=== PATIENT | male | born 1970 | race Caucasian/White ===

== ENCOUNTER 2016-07-10 07:56 | Emergency (ER) | payer BC ==
--- NOTE | 2016-07-10 08:24 | UC ---
Lower Extremity/Ankle HPI - HPI Summary HPI Summary: 45 yo male with inversion injury of left ankle slipping on ice 5 days ago hx left mid foot fx /dislocation - History of Current Complaint Chief Complaint: UCLowerExtremity Stated Complaint: ANKLE INJURY Time Seen by Provider: 07/10/16 08:06 Hx Obtained From: Patient Onset/Duration: Gradual Onset Severity Initially: Moderate Severity Currently: Moderate Pain Intensity: 6 Pain Scale Used: 0-10 Numeric Aggravating Factor(s): Standing, Ambulation Alleviating Factor(s): Rest Able to Bear Weight: Yes - Allergies/Home Medications Allergies/Adverse Reactions: Allergies Allergy/AdvReac Type Severity Reaction Status Date / Time No Known Allergies Allergy Verified 07/10/16 08:03 Home Medications: Home Medications Ibuprofen [Advil] 600 mg 07/10/16 [History] PMH/Surg Hx/FS Hx/Imm Hx Previously Healthy: Yes Cardiovascular History Of: Reports: Hypertension - not diagnosed but usually high - Surgical History Surgical History: None - Family History Known Family History: Positive: Hypertension - Social History Alcohol Use: Rare Substance Use Type: None Smoking Status (MU): Never Smoked Tobacco Review of Systems Constitutional: Negative Skin: Negative Eyes: Negative ENT: Negative Respiratory: Negative Cardiovascular: Negative Gastrointestinal: Negative Genitourinary: Negative Motor: Negative Neurovascular: Negative Musculoskeletal: Arthralgia Neurological: Negative Psychological: Negative All Other Systems Reviewed And Are Negative: Yes Physical Exam Triage Information Reviewed: Yes Appearance: Well-Appearing, No Pain Distress, Well-Nourished Vital Signs: Initial Vital Signs Temp 97.1 F 07/10/16 08:04 Pulse 120 07/10/16 08:04 Resp 18 07/10/16 08:04 BP 190/125 07/10/16 08:04 Pulse Ox 97 07/10/16 08:04 Eyes: Positive: Conjunctiva Clear ENT: Positive: Hearing grossly normal. Negative: Nasal congestion, Nasal drainage, Trismus, Muffled/hoarse voice Neck: Positive: Supple Respiratory: Positive: Lungs clear, Normal breath sounds, No respiratory distress Cardiovascular: Positive: RRR, No Murmur Musculoskeletal: Positive: Edema @ Neurological: Positive: Alert Psychological Exam: Normal Skin Exam: Normal Lower Extremity Course/Dx - Differential Dx/Diagnosis Provider Diagnoses: spiral fracture distal left fibula Discharge - Discharge Plan Condition: Stable Disposition: HOME Prescriptions: Ibuprofen TAB* [Motrin TAB*] 600 mg PO QID PRN #40 tab PRN Reason: Pain Patient Education Materials: Ankle Fracture (ED), Hypertension (ED) Forms: *Work Release Referrals: [facility] [Outside] (you blood pressure is high you need to find a primary care doctor to manage your BP) Mere Colón MD [Medical Doctor] - Additional Instructions: You have a spiral fracture of the distal left fibula CAM boot crutches with non wt bearing elevate elevate elevate Images Feet (Multiple View): 1 - tender /swollen
[2016-07-10] MEDS ORDERED: Ibuprofen TAB* 600 MG PO ONE (08:39)
--- NOTE | 2016-07-10 08:47 | RAD ---
HISTORY: Left ankle inversion injury COMPARISONS: None VIEWS: 3, Frontal, lateral, and oblique views of the left ankle FINDINGS: BONE DENSITY: Normal. BONES: There is an oblique, minimally displaced fracture of the distal fibula. JOINTS: There is no arthropathy. The tibiofibular interval is normal. ALIGNMENT: There is no dislocation. SOFT TISSUES: Unremarkable. OTHER FINDINGS: None. IMPRESSION: OBLIQUE, MINIMALLY DISPLACED FRACTURE OF THE DISTAL FIBULA
[2016-07-10 09:02] VITALS: BP 199/122
== END 2016-07-10 08:57 | disposition home or self-care (01) ==
LOC: UCEAST 07:56
DX: S82.832A Other fracture of upper and lower end of left fibula, initial encounter for closed fracture (principal); X50.1XXA Overexertion from prolonged static or awkward postures, initial encounter; Y93.9 Activity, unspecified; Y92.9 Unspecified place or not applicable; Z87.81 Personal history of (healed) traumatic fracture
CPT/HCPCS: 99203; A9270-GY; G0463

== ENCOUNTER 2017-08-15 08:03 | Emergency (ER) | payer BC ==
[2017-08-15 08:19] VITALS: BP 225/140
--- NOTE | 2017-08-15 09:02 | UC ---
Back Pain HPI - HPI Summary HPI Summary: 46 yo male with chronic low back pain takes 9 motrin a day x months also worried he has hepatitis "I've been looking on line" intermittent abd pain mod headache x 2 weeks long hx of HTN for which he has never addressed has had a left inquinal hernia x 1 year no CP or SOB - History of Current Complaint Chief Complaint: UCAbdominalPain Stated Complaint: ABD/BACK PAIN Time Seen by Provider: 08/15/17 08:18 Hx Obtained From: Patient Onset/Duration: Gradual Onset Timing: Constant Severity Initially: Mild Severity Currently: Mild Pain Intensity: 4 Pain Scale Used: 0-10 Numeric Character: Aching Aggravating Factor(s): Movement Alleviating Factor(s): OTC Meds Associated Signs And Symptoms: Positive: Negative - Allergies/Home Medications Allergies/Adverse Reactions: Allergies Allergy/AdvReac Type Severity Reaction Status Date / Time No Known Allergies Allergy Verified 08/15/17 08:19 PMH/Surg Hx/FS Hx/Imm Hx Previously Healthy: Yes Cardiovascular History: Hypertension - never addressed state "he hates doctors" - Surgical History Surgical History: None - Family History Known Family History: Positive: Hypertension - Social History Alcohol Use: Rare Substance Use Type: Marijuana Substance Use Comment - Amount & Last Used: weekly Smoking Status (MU): Never Smoked Tobacco Review of Systems Constitutional: Negative Skin: Negative Eyes: Negative ENT: Negative Respiratory: Negative Cardiovascular: Negative Gastrointestinal: Negative Genitourinary: Negative Motor: Negative Neurovascular: Negative Musculoskeletal: Myalgia Neurological: Headache Psychological: Negative Is Patient Immunocompromised?: No All Other Systems Reviewed And Are Negative: Yes Physical Exam Triage Information Reviewed: Yes Appearance: Well-Appearing, No Pain Distress, Well-Nourished Vital Signs: Initial Vital Signs Temp 98.7 F 08/15/17 08:13 Pulse 136 08/15/17 08:13 Resp 18 08/15/17 08:13 BP 225/140 08/15/17 08:13 Pulse Ox 96 08/15/17 08:13 Vital Signs Reviewed: Yes Eyes: Positive: Conjunctiva Clear, Other: - a/v nicking, no hemorrhages ENT: Positive: Hearing grossly normal. Negative: Nasal congestion, Nasal drainage, Trismus, Muffled voice, Hoarse voice Neck: Positive: Supple, Nontender Respiratory: Positive: Lungs clear, Normal breath sounds, No respiratory distress, No accessory muscle use Cardiovascular: Positive: RRR, Tachycardia Abdomen Description: Positive: Nontender, Soft, Hernia @ - huge left inguinal Musculoskeletal: Positive: Edema @ - pretibial Neurological: Positive: Alert Psychological Exam: Normal Skin Exam: Normal Back Pain Course/Dx - Course Course Of Treatment: decline EMS transfer to [facility] [place] Cristobal aware he is coming POV - Differential Dx/Diagnosis Provider Diagnoses: hypertensive urgency. back pain. proteinuria. left inginal hernia Discharge - Sign-Out/Discharge Documenting (check all that apply): Discharge - Discharge Plan Condition: Guarded Disposition: TRANS HIGHER LVL OF CARE FAC Referrals: No Primary Care Phys,NOPCP [Primary Care Provider] - Additional Instructions: to ER for evaluation of your symptoms You need a higher level of care than we can provide you here - Billing Disposition and Condition Condition: GUARDED Disposition: EMTALA
== END 2017-08-15 09:00 | disposition short-term general hospital (02) ==
LOC: UCEAST 08:03
DX: M54.5 Low back pain (principal); K40.90 Unilateral inguinal hernia, without obstruction or gangrene, not specified as recurrent; R80.9 Proteinuria, unspecified; I16.0 Hypertensive urgency; R00.0 Tachycardia, unspecified
CPT/HCPCS: 81003; 93005; 99212; G0463

== ENCOUNTER 2017-08-15 09:23 | Emergency (ER) | payer BC ==
[2017-08-15] MEDS ORDERED: NS 0.9% 1000 ML* 1,000 ML IV SCH (10:15)
[2017-08-15] MEDS ORDERED: Labetalol IV* 5 MG/ML 20 ML VIAL IV PUSH ONE ×2 (10:17→11:01)
[2017-08-15 10:34] LABS: ABS Basophils 0.1 10^3/ul (0-0.2); ABS Eosinophils 0.1 10^3/ul (0-0.6); ABS Lymphocytes 1.8 10^3/ul (1.0-4.8); ABS Monocytes 0.8 10^3/ul (0-0.8); ABS Nucleated RBC 0 10^3/ul; Eosinophil % 0.7 % (0-6); Hematocrit 45 % (42-52); Hemoglobin 15.3 g/dl (14.0-18.0); Lymphocyte % 10.1 % (25-47); Mean Corpuscular HGB Conc 34 g/dl (31-36); Mean Corpuscular Hemoglobin 29 pg (27-31); Mean Corpuscular Volume 84 fL (80-94); Mean Platelet Volume 10.3 um3 (7.4-10.4); Nucleated Red Blood Cells % 0; Platelet Count 218 10^3/ul (150-450); Red Blood Count 5.37 10^6/ul (4.0-5.4); Red Cell Distribution Width 14 % (10.5-15); White Blood Count 17.8 10^3/ul (3.5-10.8)
--- NOTE | 2017-08-15 10:41 | RAD ---
HISTORY: Tachycardia COMPARISONS: None VIEWS: 1: frontal portable view of the chest at 10:25 AM FINDINGS: LINES AND TUBES: None. CARDIOMEDIASTINAL SILHOUETTE: The cardiomediastinal silhouette is normal for portable technique. PLEURA: The costophrenic angles are sharp. No pleural abnormalities are noted. LUNG PARENCHYMA: The lungs are clear. ABDOMEN: The upper abdomen is clear. There is no subphrenic gas. BONES AND SOFT TISSUES: No bone or soft tissue abnormalities are noted. IMPRESSION: NO ACTIVE CARDIOPULMONARY DISEASE.
[2017-08-15 10:47] LABS: INR 0.96 (0.77-1.02)
[2017-08-15 10:52] LABS: EGFR Non-African American 77.1 (>60)
[2017-08-15] MEDS ORDERED: amLODIPine TAB* 5 MG PO ONE (11:35)
[2017-08-15] MEDS ORDERED: Iohexol 300* (CONTRAST) 10 ML SDV IV ONE (12:02)
--- NOTE | 2017-08-15 13:30 | RAD ---
CLINICAL HISTORY: Low back pain and "left inguinal mass". COMPARISON: None TECHNIQUE: Contrast enhanced CT examination of the abdomen and pelvis from the lung bases through the initial tuberosities. The patient received 133 mL Omnipaque 300 intravenously prior to imaging.The patient received oral contrast as well prior to imaging. Reformats of the lumbar spine were specifically created and independently reviewed. FINDINGS: VISUALIZED LUNG BASES: At the dependent lung bases there are several round pleural based densities as well as a more linear density along the medial margin of the right lung base. The appearance is most consistent with atelectasis. There is no pleural effusion. ABDOMEN AND PELVIS: The liver, spleen, pancreas and adrenal glands are grossly normal in appearance. The gallbladder is normal. The kidneys are normal in appearance without focal mass, calcification or signs of hydronephrosis. The oral contrast has progressed as far as the descending colon. The small and large bowel are not distended. The patient's normal appendix is identified in the right lower quadrant measuring 6 mm in diameter with a small amount of contrast in the lumen. The descending colon descends into the patient's very large left inguinal hernia, loops through the hernia before exiting as the sigmoid colon. There are no signs of pathologic obstruction or acute inflammatory change in this hernia. There is no gross retroperitoneal or mesenteric lymphadenopathy. The pelvic viscera is normal in appearance. The mildly calcified abdominal aorta and iliac arteries are normal in course and diameter. Mild degenerative changes of the lower thoracic and lumbar spine includes loss of intervertebral disc height. There is anterior marginal osteophyte formation along the lower thoracic spine. There is broad-based disc protrusion that combines with facet arthropathy and thickening of the ligamentum flavum at L2/L3, L3/L4 and L4/L5 causing varying degrees of central canal or neural foraminal stenoses. IMPRESSION: 1. There is a large left-sided inguinal hernia containing a loop of distal descending and sigmoid colon. There are no signs of pathologic obstruction or acute inflammatory change. 2. Degenerative changes of the lower lumbar spine including degenerative disc disease as described above. If clinically warranted superior characterization of the lumbar spine can be made with MRI on a nonemergent basis. 3. Chronic and degenerative changes described in the body the report unlikely to be directly related to the patient's current presentation.
[2017-08-15 13:46] LABS: Urine Appearance Clear; Urine Blood Negative (Negative); Urine Color Yellow; Urine Ketones Negative (Negative); Urine Protein 2+(100 mg/dL) (Negative); Urine Specific Gravity 1.029 (1.010-1.030); Urine Urobilinogen Negative (Negative)
[2017-08-15 14:58] VITALS: BP 197/126
--- NOTE | 2017-08-15 15:52 | ED ---
Cuauhtemoc Zuniga Gabriel scribed for Sergio Beard MD on 08/15/17 at 0952 . Back Pain - HPI Summary HPI Summary: This patient is a 46 year old M presenting to [facility] with a chief complaint of back pain that began 6 months ago. The patient rates the pain 4/10 in severity. Symptoms aggravated by long periods of standing and walking. Symptoms alleviated by rest and sitting. Patient reports intermittent SANDERS. Patient denies CP, SOB, nausea, trouble with BM, blood in stool, and urinary symptoms. He takes 9-200mg tablets of ibuprofen a day. Pt also complains of a hernia that began a year ago that is getting worse. Pt was seen at and referred here. - History of Current Complaint Chief Complaint: EDBackInjuryPain Stated Complaint: ABD PAIN-CC TRANSFER Time Seen by Provider: 08/15/17 09:43 Hx Obtained From: Patient Onset/Duration: Lasting Weeks, Still Present Timing: Constant Severity Initially: Moderate Severity Currently: Moderate Pain Intensity: 4 Pain Scale Used: 0-10 Numeric Associated Signs And Symptoms: Positive: Negative - CP, SOB, nausea, trouble with BM, blood in stool, and urinary symptoms, Other - SANDERS - Allergies/Home Medications Allergies/Adverse Reactions: Allergies Allergy/AdvReac Type Severity Reaction Status Date / Time No Known Allergies Allergy Verified 08/15/17 08:19 PMH/Surg Hx/FS Hx/Imm Hx Endocrine/Hematology History: Denies: Hx Diabetes Cardiovascular History: Reports: Hx Hypertension - not diagnosed but usually high Respiratory History: Denies: Hx Chronic Bronchitis, Hx Chronic Obstructive Pulmonary Disease (COPD ) Infectious Disease History: No Infectious Disease History: Denies: Traveled Outside the [place] in Last 30 Days - Family History Known Family History: Positive: Hypertension - Social History Occupation: Employed Full-time Lives: With Family Alcohol Use: Rare Substance Use Type: Reports: Marijuana Substance Use Comment - Amount & Last Used: weekly Smoking Status (MU): Never Smoked Tobacco Review of Systems Negative: Chest Pain Negative: Shortness Of Breath Gastrointestinal: Negative - blood in stool Positive: Other - inguinal hernia . Negative: Nausea Positive: no symptoms reported Positive: Other - low back pain Positive: Headache All Other Systems Reviewed And Are Negative: Yes Physical Exam - Summary Physical Exam Summary: General: well-appearing, no pain distress Skin: warm, color reflects adequate perfusion, dry Head: normal Eyes: EOMI, CHET ENT: normal Neck: supple, nontender Respiratory: CTA, breath sounds present Cardiovascular: tachycardia Abdomen: soft, nontender, left inguinal and scrotal swelling that is mildly TTP Bowel: present Musculoskeletal: normal, strength/ROM intact Neurological: normal, sensory/motor intact, A&O x3 Psychological: affect/mood appropriate Triage Information Reviewed: Yes Vital Signs On Initial Exam: Initial Vitals Temp Pulse Resp BP Pulse Ox 99.3 F 122 20 235/142 95 08/15/17 09:34 08/15/17 09:34 08/15/17 09:34 08/15/17 09:34 08/15/17 09:34 Vital Signs Reviewed: Yes Diagnostics - Vital Signs Vital Signs Temp Pulse Resp BP Pulse Ox 08/15/17 09:34 99.3 F 122 20 235/142 95 - Laboratory Lab Results: Lab Results 08/15/17 08/15/17 08/15/17 Range/Units 10:02 10:02 10:02 WBC (3.5-10.8) 10^3/ul RBC (4.0-5.4) 10^6/ul Hgb (14.0-18.0) g/dl Hct (42-52) % MCV (80-94) fL MCH (27-31) pg MCHC (31-36) g/dl RDW (10.5-15) % Plt Count (150-450) 10^3/ul MPV (7.4-10.4) um3 Neut % (Auto) (38-83) % Lymph % (Auto) (25-47) % Lenoir % (Auto) (0-7) % Eos % (Auto) (0-6) % Baso % (Auto) (0-2) % Absolute Neuts (auto) (1.5-7.7) 10^3/ul Absolute Lymphs (auto) (1.0-4.8) 10^3/ul Absolute Monos (auto) (0-0.8) 10^3/ul Absolute Eos (auto) (0-0.6) 10^3/ul Absolute Basos (auto) (0-0.2) 10^3/ul Absolute Nucleated RBC 10^3/ul Nucleated RBC % INR (Anticoag Therapy) 0.96 (0.77-1.02) APTT 29.1 (26.0-36.3) seconds Sodium 139 (139-145) mmol/L Potassium 3.4 L (3.5-5.0) mmol/L Chloride 103 (101-111) mmol/L Carbon Dioxide 26 (22-32) mmol/L Anion Gap 10 (2-11) mmol/L BUN 18 (6-24) mg/dL Creatinine 1.03 (0.67-1.17) mg/dL Est GFR ( Amer) 99.1 (>60) Est GFR (Non-Af Amer) 77.1 (>60) BUN/Creatinine Ratio 17.5 (8-20) Glucose 134 H (70-100) mg/dL Calcium 9.2 (8.6-10.3) mg/dL Magnesium 2.0 (1.9-2.7) mg/dL Total Bilirubin 0.40 (0.2-1.0) mg/dL AST 21 (13-39) U/L ALT 28 (7-52) U/L Alkaline Phosphatase 91 (34-104) U/L Total Creatine Kinase 108 (10-223) U/L CK-MB (CK-2) 3.3 (0.6-6.3) ng/mL Troponin I 0.03 (<0.04) ng/mL C-Reactive Protein 3.65 (< 5.00) mg/L B-Natriuretic Peptide 114 H ( - 100) pg/mL Total Protein 6.9 (6.4-8.9) g/dL Albumin 3.5 (3.2-5.2) g/dL Globulin 3.4 (2-4) g/dL Albumin/Globulin Ratio 1.0 (1-3) Lipase 13 (11.0-82.0) U/L TSH 1.68 (0.34-5.60) mcIU/mL Urine Color Urine Appearance Urine pH (5-9) Ur Specific Welsh (1.010-1.030) Urine Protein (Negative) Urine Ketones (Negative) Urine Blood (Negative) Urine Nitrate (Negative) Urine Bilirubin (Negative) Urine Urobilinogen (Negative) Ur Leukocyte Esterase (Negative) Urine WBC (Auto) (Absent) Urine RBC (Auto) (Absent) Urine Bacteria (Absent) Urine Glucose (Negative) Serum Alcohol < 10 (<10) mg/dL 08/15/17 08/15/17 Range/Units 10:02 13:15 WBC 17.8 H (3.5-10.8) 10^3/ul RBC 5.37 (4.0-5.4) 10^6/ul Hgb 15.3 (14.0-18.0) g/dl Hct 45 (42-52) % MCV 84 (80-94) fL MCH 29 (27-31) pg MCHC 34 (31-36) g/dl RDW 14 (10.5-15) % Plt Count 218 (150-450) 10^3/ul MPV 10.3 (7.4-10.4) um3 Neut % (Auto) 84.2 H (38-83) % Lymph % (Auto) 10.1 L (25-47) % Lenoir % (Auto) 4.6 (0-7) % Eos % (Auto) 0.7 (0-6) % Baso % (Auto) 0.4 (0-2) % Absolute Neuts (auto) 15.0 H (1.5-7.7) 10^3/ul Absolute Lymphs (auto) 1.8 (1.0-4.8) 10^3/ul Absolute Monos (auto) 0.8 (0-0.8) 10^3/ul Absolute Eos (auto) 0.1 (0-0.6) 10^3/ul Absolute Basos (auto) 0.1 (0-0.2) 10^3/ul Absolute Nucleated RBC 0 10^3/ul Nucleated RBC % 0 INR (Anticoag Therapy) (0.77-1.02) APTT (26.0-36.3) seconds Sodium (139-145) mmol/L Potassium (3.5-5.0) mmol/L Chloride (101-111) mmol/L Carbon Dioxide (22-32) mmol/L Anion Gap (2-11) mmol/L BUN (6-24) mg/dL Creatinine (0.67-1.17) mg/dL Est GFR ( Amer) (>60) Est GFR (Non-Af Amer) (>60) BUN/Creatinine Ratio (8-20) Glucose (70-100) mg/dL Calcium (8.6-10.3) mg/dL Magnesium (1.9-2.7) mg/dL Total Bilirubin (0.2-1.0) mg/dL AST (13-39) U/L ALT (7-52) U/L Alkaline Phosphatase (34-104) U/L Total Creatine Kinase (10-223) U/L CK-MB (CK-2) (0.6-6.3) ng/mL Troponin I (<0.04) ng/mL C-Reactive Protein (< 5.00) mg/L B-Natriuretic Peptide ( - 100) pg/mL Total Protein (6.4-8.9) g/dL Albumin (3.2-5.2) g/dL Globulin (2-4) g/dL Albumin/Globulin Ratio (1-3) Lipase (11.0-82.0) U/L TSH (0.34-5.60) mcIU/mL Urine Color Yellow Urine Appearance Clear Urine pH 7.0 (5-9) Ur Specific Welsh 1.029 (1.010-1.030) Urine Protein 2+(100 mg/dl) A (Negative) Urine Ketones Negative (Negative) Urine Blood Negative (Negative) Urine Nitrate Negative (Negative) Urine Bilirubin Negative (Negative) Urine Urobilinogen Negative (Negative) Ur Leukocyte Esterase Negative (Negative) Urine WBC (Auto) Trace(0-5/hpf) (Absent) Urine RBC (Auto) Trace(0-2/hpf) (Absent) Urine Bacteria Absent (Absent) Urine Glucose Negative (Negative) Serum Alcohol (<10) mg/dL Result Diagrams: 08/15/17 10:02 08/15/17 10:02 Lab Statement: Any lab studies that have been ordered have been reviewed, and results considered in the medical decision making process. - Radiology CXR Radiology Interpretation Completed By: Radiologist - no active cardiopulmonary disease ED physician has reviewed this radiology report. - CT CT ABD/Pelvis CT Interpretation Completed By: Radiologist - 1 There is a large left-sided inguinal hernia containing a loop of distal descending and sigmoid colon. There are no signs of pathologic obstruction or acute inflammatory change. 2. Degenerative changes of the lower lumbar spine including degenerative disc disease as described above. If clinically warranted superior characterization of the lumbar spine can be made with MRI on a nonemergent basis. 3. Chronic and degenerative changes described in the body the report unlikely to be directly related to the patient's current presentation. ED physician has reviewed this report. L spine CT CT Interpretation Completed By: Radiologist - 1 There is a large left-sided inguinal hernia containing a loop of distal descending and sigmoid colon. There are no signs of pathologic obstruction or acute inflammatory change. 2. Degenerative changes of the lower lumbar spine including degenerative disc disease as described above. If clinically warranted superior characterization of the lumbar spine can be made with MRI on a nonemergent basis. 3. Chronic and degenerative changes described in the body the report unlikely to be directly related to the patient's current presentation. ED physician has reviewed this report. - EKG 11:21 Cardiac Rate: NL EKG Rhythm: Sinus Rhythm - at 96 BPM EKG Interpretation: nonspecific abnormalities in the lateral and anterior leads Re-Evaluation - Re-Evaluation First Eval Re-Evaluation Time: 14:20 Change: Improved Comment: The pt's pain has improved and I discussed discharge and test results. Back Pain Course/Dx - Course Course Of Treatment: DISCUSSED RESULTS WITH THE PATIENT. DISCUSSED WITH DR MARTINEZ, SURGERY. THE HERNIA IS NOT INCARCERATED AND PAIN FREE AT THIS TIME; F /U OUT PATIENT WITH SURGERY. STARTED AMLODIPINE 10MG PO QD FOR THE HTN; F/U PMD. RX FLEXERIL AND TRAMADOL FOR THE LBP; F/U PMD. RETURN TO ED IF WORSE OR ANY QUESTIONS/CONCERNS. Assessment/Plan: BP noted and advised to follow up with PCP. Medications reviewed. - Diagnoses Provider Diagnoses: Low back pain, Hypertension, Left inguinal hernia - Provider Notifications Discussed Care Of Patient With: Leoncio Martinez Time Discussed With Above Provider: 14:10 Instructed by Provider To: Other - We discussed patient care with Dr. Martinez , surgeon and they recommended that the patient should be discharged and follow up in his office. Discharge - Sign-Out/Discharge Documenting (check all that apply): Discharge - Discharge Plan Condition: Stable Disposition: HOME Prescriptions: amLODIPine TAB* [Norvasc 5 mg TAB*] 10 mg PO DAILY #30 tab Amoxicillin/Clavulanate TAB* [Augmentin TAB 875*] 875 mg PO BID #20 tab Cyclobenzaprine TAB* [Flexeril 10 MG TAB*] 10 mg PO TID PRN #15 tab MDD 3 PRN Reason: Pain traMADol TAB* [Ultram*] 50 mg PO Q6HR PRN #20 tab MDD 4 PRN Reason: Pain Patient Education Materials: Inguinal Hernia (ED), Hypertension (ED), Chronic Back Pain (ED), Core Strengthening Exercises (GEN) Forms: *Work Release Referrals: [facility] [Provider Group] [facility] [Outside] Leoncio Martinez MD [Medical Doctor] - Additional Instructions: FOLLOW UP WITH YOUR DOCTOR WITHIN [address]LLOW UP WITH DR MARTINEZ, SURGERY, FOR YOUR LEFT INGUINAL HERNIA. RETURN TO THE EMERGENCY DEPARTMENT FOR ANY WORSENING OF YOUR CONDITION; PAIN, WEAKNESS, YOU FEEL ILL OR QUESTIONS OR CONCERNS. YOUR BLOOD PRESSURE WAS ELEVATED TODAY; FOLLOW UP WITH YOUR PRIMARY CARE DOCTOR WITHIN ONE WEEK. - Billing Disposition and Condition Condition: STABLE Disposition: HOME The documentation as recorded by the Cuauhtemoc hector Gabriel accurately reflects the service I personally performed and the decisions made by me, Sergio Beard MD.
== END 2017-08-15 14:57 | disposition home or self-care (01) ==
LOC: ED 09:23
DX: M54.5 Low back pain (principal); I10 Essential (primary) hypertension; K40.90 Unilateral inguinal hernia, without obstruction or gangrene, not specified as recurrent; R11.0 Nausea; R51 Headache
CPT/HCPCS: 36415; 71045; 72131; 74177; 80053; 80074; 80320; 81003; 81015; 82550; 82553; 83690; 83735; 83880; 84443; 84484; 85025; 85610; 85730; 86140; 87086; 93005; 96374; 96375; 99283; A9270-GY; G0480; Q9967

== ENCOUNTER 2017-09-24 06:31 | Day surgery (SDC) | payer BC ==
[~2017-09-24 06:31] MED LIST: Buffered Lidocaine 0.9% SYRIN* 5 ML/SYR SYRINGE INTRADERM ONE; Dexamethasone IV* 4 MG/ML 1 ML (4 MG) IV SLOW PU ONE; Famotidine IV* 10 MG/ML 2 ML (20 mg) IV ONE
[2017-09-24] MEDS ORDERED: ceFAZolin 1 GM VIAL(*) 3 GM in NS 0.9% 100 ML* 130 ML IVPB ONE (07:00)
[2017-09-24] MEDS ORDERED: ceFAZolin 2 GM PREMIX (*) 2 GM/50 ML BAG IVPB ONE (07:01)
[2017-09-24] MEDS ORDERED: ceFAZolin 1 GM in Dextrose (*) 1 GM/50 ML BAG IVPB ONE (07:01)
[2017-09-24] MEDS ORDERED: Dexamethasone IV* 4 MG/ML 1 ML (4 MG) ONE (07:06)
[2017-09-24] MEDS ORDERED: Famotidine TAB* 20 MG ONE (07:06)
[2017-09-24] MEDS ORDERED: Lidocaine 1% INJ* 10 MG/ML 30 ML SDV ONE (07:12)
[2017-09-24] MEDS ORDERED: Bupivacaine 0.5%* 50 ML VIAL ONE (07:12)
[2017-09-24] MEDS ORDERED: Buffered Lidocaine 0.9% SYRIN* 5 ML/SYR SYRINGE ONE (07:13)
[2017-09-24] MEDS ORDERED: fentaNYL* 50 MCG/ML 5 ML VIAL (250 MCG VIAL) ONE (07:16)
[2017-09-24] MEDS ORDERED: Lidocaine 2% PF * 5 ML VIAL ONE (07:16)
[2017-09-24] MEDS ORDERED: Propofol* 10 MG/ML 20 ML BTL IV PUSH ONE (07:16)
[2017-09-24] MEDS ORDERED: Midazolam* 1 MG/ML 5 ML VIAL (5 MG) ONE (07:16)
[2017-09-24] MEDS ORDERED: Rocuronium* 10 MG/ML VIAL ONE ×2 (07:17→08:44)
[2017-09-24] MEDS ORDERED: oxyCODONE/Acetamin 5/325 MG* TAB PO PRN (07:23)
[2017-09-24] MEDS ORDERED: fentaNYL* 50 MCG/ML 2 ML VIAL (100 MCG VIAL) IV PRN (07:23)
[2017-09-24] MEDS ORDERED: Naloxone* 0.4 MG/ML 1 ML VIAL IV PRN (07:23)
[2017-09-24] MEDS ORDERED: PROCHLORPERAZINE INJ 5 MG/ML 2 ML VIAL IV PRN (07:23)
[2017-09-24] MEDS ORDERED: HYDROcodone/ACETAMIN 5-325 MG* 1 TAB PO PRN (07:23)
[2017-09-24] MEDS ORDERED: Lidocaine 1% MPF wEPI 200,000* 30 ML SDV ONE (07:36)
[2017-09-24] MEDS ORDERED: EPHEDrine (Pressors)* 50 MG/ML VIAL ONE (07:59)
[2017-09-24] MEDS ORDERED: fentaNYL* 50 MCG/ML 2 ML VIAL (100 MCG VIAL) ONE ×2 (09:19→09:36)
[2017-09-24] MEDS ORDERED: Labetalol IV* 5 MG/ML 20 ML VIAL ONE (09:42)
[2017-09-24] MEDS ORDERED: DiMENhydriNATE IV* 50 MG/ML VIAL ONE (10:13)
[2017-09-24] MEDS ORDERED: Sugammadex * 200 MG/2 ML VIAL IV PUSH ONE (10:13)
[2017-09-24] MEDS ORDERED: Ketorolac INJ* 30 MG/ML 1 ML VIAL ONE (10:17)
[2017-09-24] MEDS ORDERED: oxyCODONE/Acetamin 5/325 MG* TAB ONE (13:47)
[2017-09-24 14:26] VITALS: BP 146/101
--- NOTE | 2017-09-25 08:39 | OP ---
CC: Dr. Melendrez, [facility].* DATE OF OPERATION: 09/24/17 - [facility] DATE OF : 66 SURGEON: Leoncio Martinez MD BULB FARMWORKER: Charlse Vitale MD ANESTHESIOLOGIST: Dr. Wu. ANESTHESIA: General with local. PRE-OP DIAGNOSIS: Large left inguinal scrotal hernia. POST-OP DIAGNOSIS: Large incarcerated left indirect inguinal scrotal hernia. OPERATIVE PROCEDURE: Open repair with mesh of a large left indirect inguinal scrotal hernia. ESTIMATED BLOOD LOSS: Less than 100 cc. IV FLUIDS: 1.5 L of crystalloid. SPECIMENS: None. COMPLICATIONS: None. DRAINS: None. WOUND CLASSIFICATION: I. BRIEF HISTORY: Mr. Christoph Metcalf is a 46-year-old gentleman who has had a large and longstanding left inguinal hernia extending out to the scrotum. This is non reducible and although he has not had symptoms of bowel obstruction or significant discomfort, he is to undergo an elective repair as he is at high risk for acute complications of this large inguinal hernia, which on CT scan shows a large amount of sigmoid colon and omental fat. PROCEDURE IN DETAIL: Written informed consent was obtained, the left groin was marked with indelible ink and pre-operative antibiotics were administered. The patient was taken to the operating room and placed in the supine position. Sequential decompression devices and warming blanket were applied. General anesthesia was administered. A Almeida catheter was inserted. The entire left abdomen, left groin and scrotum and penis were prepped and draped in the usual sterile fashion. Time-out verification was completed. A 0.25% Marcaine mixed with 1% lidocaine with epinephrine was infiltrated extensively into the left groin. An oblique incision was made several fingerbreadths above the inguinal crease and carried down through Ruby's fascia. The external oblique aponeurosis was identified and opened to the direction of its fibers. It was obvious that there was a large protuberance extending down into the scrotum and with the hernia. With care, I was able to undermine the area deep to the external oblique aponeurosis superiorly and identified the pubic tubercle and the inguinal ligament as it ran laterally underneath the hernia sac and spermatic cord and its contents, which I subsequently encircled with the one quarter-inch Gena drain. Then, with some fairly difficult dissection, we were able to identify and separate the massive inguinal hernia sac that extended down into the scrotum. I did enter into the sac in 1 place with a rather large rent, but this was repaired with a running 3-0 Polysorb suture. The intra-sac contents included the sigmoid colon and large amount of fat as described above. Once we were able to reduce the hernia sac up out of the scrotum it from the spermatic cord and identifying the left testicle and preventing it from injury throughout, able to dissect the sac down into the internal ring. At this point, with better visualization, it appeared that this was an indirect inguinal hernia. The sac and its contents were very difficult to reduce through the existing patulous internal ring and it was necessary to divide some of the musculature laterally of the abdominal wall to increase the size of the ring and with persistent pressure and placing him in Trendelenburg position, we were able to reduce the sac as well as its contents back into the abdominal cavity. A careful evaluation showed what appeared to be a direct space that was intact without evidence of hernia. I placated the internal ring with several 3-0 Vicryl sutures laterally to repair the muscle defect in preparation for mesh placement. Once again, I was able to evaluate the spermatic cord, it was intact. The vas deferens was protected from injury throughout the case. It also should be noted that the ilioinguinal nerve was sacrificed early in the case. I feel it was involved with significant amount of scar tissue and I felt this would be beneficial for postoperative pain management. Next, the ProGrip Covidien onlay mesh was then placed in the inguinal region and sutured to the pubic tubercle medially with a horizontal 0-Vicryl suture. This was then sutured to the conjoint tendon and musculature laterally with interrupted 0- Polysorb suture. It was secured in the inguinal ligament inferiorly with a running 0-Vicryl suture. The mesh covered the both direct and indirect space well and reconstructed the internal ring with just enough space to permit the spermatic cord and its contents. Hemostasis was assured. Additional Marcaine was infiltrated. The external oblique aponeurosis was closed with a running 0-Vicryl suture. Ruby's fascia was closed with a running 3-0 Vicryl suture. A second 3-0 layer of subcutaneous tissue was then closed with a running 3-0 Vicryl suture. The skin was approximated with stapling device. Dry sterile dressings were applied. The patient tolerated the procedure well, was taken to the recovery room in stable condition. [id number]/[facility] #: [id number] VIDYA
== END 2017-09-24 15:39 | disposition home or self-care (01) ==
LOC: OR 06:31
PROVIDERS: ATTEND Surgery
DX: K40.30 Unilateral inguinal hernia, with obstruction, without gangrene, not specified as recurrent (principal); I10 Essential (primary) hypertension; E78.5 Hyperlipidemia, unspecified; E66.9 Obesity, unspecified; Z68.41 Body mass index [BMI] 40.0-44.9, adult
CPT/HCPCS: A9270-GY; J0690; J1100; J1240; J1885; J2001; J2250; J2704; J3010

== ENCOUNTER 2018-02-26 07:30 | Inpatient (IN) | payer OTHER ==
--- NOTE | 2018-10-17 18:05 | HP ---
Amended report to enter cosigning physician. PREOPERATIVE HISTORY AND PHYSICAL: DATE OF ADMISSION/SURGERY: 10/29/18 ATTENDING PHYSICIAN: Dr. Casey Andrade* (dictated by ROCKY [place]). CHIEF COMPLAINT: Left hip pain. HISTORY OF PRESENT ILLNESS: The patient is a 47-year-old male referred by Savannah Long at [facility] with the above noted left groin pain. He was working full-time until the end of 08/12/17 when he had been hobbling for 6 to 8 months with groin pain and he could just no longer work. He has been disabled since that time. He has had left leg chronic swelling. He has had a chronic wound on his left calf that has been slow to heal over the last year. He has been diligent in caring for the skin and has gotten swelling down significantly. His skin is dry, but there is no active drainage or open wounds at this time. His walking distance has been less than a block. He would like to proceed with left total hip arthroplasty understanding the risks and benefits. He is requesting postoperative pain medication and muscle relaxants sent to his pharmacy prior to his upcoming surgery. His surgery is scheduled for 10/29/18. PAST MEDICAL HISTORY: Significant for hypertension, hyperlipidemia, obesity, DVT in both lower extremities, and a left distal fibular fracture as well as fractured metatarsals in the . PAST SURGICAL HISTORY: He had an inguinal hernia repair in 2018. MEDICATIONS: 1. Tramadol 50 mg half to one tablet p.o. q.6 hours p.r.n. pain. 2. Forearm crutches. 3. Losartan potassium 25 mg p.o. daily. 4. Amlodipine 10 mg 1 tab p.o. daily. 5. Howard Aspirin 325 mg 1 p.o. daily. 6. Extra Strength Tylenol 500 mg 1 to 2 tabs every 6 hours as needed. 7. Hydrochlorothiazide 25 mg p.o. daily. ALLERGIES: No known drug allergies. FAMILY HISTORY: Positive for hypertension. SOCIAL HISTORY: The patient is single. He lives alone. He is currently disabled, used to work at a [employer]. He denies use of tobacco or alcohol , but does admit to using marijuana regularly to help with pain. ROS: He denies recent LOC, lightheadedness, dizziness, SOB, chest pain or palpitations. Denies GI or symptoms. + for prior DVT bilateral lower extremities, no hx PE. PHYSICAL EXAMINATION GENERAL: The patient is alert and oriented x3, in no acute distress, appropriate dress and affect. VITAL SIGNS: Height 67 inches, weight 272 pounds. Blood pressure 128/78, respirations 18, temperature 98.7. BMI 42.6. HEENT: PERRLA. LUNGS: Clear to auscultation without wheeze. HEART: Regular rate and rhythm. No murmur auscultated. ABDOMEN: Obese, nontender, nondistended. Normoactive bowel sounds x4 quadrants. EXTREMITIES: Left lower extremity: The patient walks with an antalgic gait, favoring the left hip. His range of motion is roughly 70 degrees of hip flexion , abduction to 20 degrees with pain, external rotation -20 degrees with pain, internal rotation -20 degrees with pain. His skin is dry with mild erythema from knee to ankle. There are no open lesions or evidence of drainage or infectious process. There are no areas of excoriation or open lesions at the proximal lateral hip region. His sensation is intact distally. He has a 1+ pedal pulse. IMPRESSION: Advanced degenerative arthritis, left hip. PLAN: Dr. Andrade has offered him a left total hip arthroplasty. Now that his skin has significantly improved and the swelling has gone down as well, he feels that he can proceed with left total hip arthroplasty. The patient understands that he is at higher than above risk of infection, but due to his extreme hip pain and disability, he would like to proceed despite these risks. He is scheduled for PAT at the hospital this afternoon and scheduled to see his primary care provider early next week for clearance. Prescription for tramadol that he uses daily for his advanced osteoarthritis was refilled. Also, prescriptions for oxycodone/acetaminophen 5/325 one to two tablets every 4 to 6 hours and Flexeril 10 mg p.o. t.i.d. as needed were sent to his pharmacy to use after surgery. He states he will not use these medications prior to his procedure. Today, Dr. Andrade discussed with the patient the importance of taking care of his legs with joint replacement because of the skin, his open sores and problems over the years, now there is more risk of hip replacement, infection and having to redo the replacement and treat deep infection. Should infection persist, then there is more chance of life on walking aids or wheelchair. He is at increased risk for DVT and pulmonary embolism given his previous DVT in the past year. His toenails are neglected and he is not likely to be able to get them cared for prior to his hip replacement. I will plan to do his nails at the time of his hip replacement. He was advised there could be complications from that, infection per Dr. Andrade. ROCKY [place] [id number]/[facility] #: [id number]
[2018-10-28] MEDS ORDERED: Buffered Lidocaine 1% SYRIN* 1 ML/SYRINGE INTRADERM ONE (12:20)
[2018-10-29] MEDS ORDERED: Tranexamic Acid 1,000 MG in NS 0.9% 50 ML* (outpatient use) IV SCH ×2
[2018-10-29] MEDS ORDERED: Lactated Ringers 1000 ML Bag* 1,000 ML IV SCH ×2 (06:00→16:00)
--- OUTSIDE RECORDS SUMMARY | 2018-10-29 08:20 | XMS REPORT | Continuity of Care Document ---
:1970 External Reference #:[id number] Author Name Jimmie Melendrez MD Address [address] [place] [address] Care Team Providers Name Role Phone Jimmie Melendrez MD Care Team Information Census Taker Unavailable Jimmie Melendrez MD Primary Care Physician Unavailable Payers Date Identification Numbers Payment Provider Subscriber Effective: 2018 Policy Number: [id number] [facility] Capri Metcalf PayID: [id number] [address] [address] [place] [address] Effective: 2015 Policy Number: [id number] / Of [facility] Capri Metcalf Expires: 2018 PayID: [id number] [address] [address] [place] [address] Social History Type Date Description Comments Sex Unknown Marital Status . Diet Skips Meals Diet Healthy, Well Balanced Sleep Reports continuity disturbances Tobacco Use Start: Unknown shift related sleep disturbances Sleep Typically sleeps 6 hours a night Tobacco Use Start: Unknown Denies Tobacco Use ETOH Use Rare Recreational Drug Use Marijuana Tobacco Use Start: Unknown Nonsmoker Smoking Status Reviewed: 10/21/18 Nonsmoker Exercise Type/Frequency Exercises rarely Allergies, Adverse Reactions, Alerts Description No Known Drug Allergies Medications Active Medications SIG Qnty Indications Ordering Date Provider Hydrochlorothiazide 1 by mouth 90tabs Jimmie Gee 06/26/2018 25mg Tablets every Am MD Parvin Losartan Potassium 1 by mouth 90tabs I10 Jimmie Gee 10/31/2017 100mg Tablets every day MD Parvin Amlodipine Besylate 1 by mouth 90tabs I10 Jimmie Gee 10mg Tablets every day MD Parvin Tramadol HCL 1/2 -1 by Unknown 50mg Tablets mouth every 6 hours as needed Aspirin 1 by mouth Unknown 325mg Tablets every day History Medications Silver Sulfadiazine apply sparingly 50gm [place] 10/18/2017 - 1% to left lower [facility], [facility] 06/25/2018 Cream extremity posterior wound daily with dressing change Blood Pressure Cuff take blood 1units I10 [place] 10/17/2017 - pressure once a [facility], [facility] 07/28/2018 day as needed. Losartan Potassium 1 by mouth every 90tabs I10 [place] 09/07/2017 - 50mg day [facility], [facility] 10/31/2017 Tablets Naproxen 1 by mouth twice 60tabs M54.5 [place] 08/24/2017 - 500mg Tablets a day with food [facility], [facility] 06/25/2018 Losartan Potassium 1 by mouth every 90tabs I10 [place] 08/24/2017 - 25mg day [facility], [facility] 09/07/2017 Tablets Amoxicillin/Clavulanate 1 twice a day w/ Unknown - Potassium food. 10/16/2017 875-125mg Tablets Cyclobenzaprine HCL 1 by mouth three Unknown - 10mg times a day as 10/16/2017 Tablets needed Tramadol HCL 1 by mouth every Unknown - 50mg Tablets 6 hours as 10/16/2017 needed Immunizations CPT Code Status Date Vaccine Lot # [id number] Given 09/10/2017 Tdap Tetanus, W Pertussis [id number] Vital Signs Date Vital Result Comment 10/21/2018 2:50pm BP Systolic 138 mmHg BP Diastolic 88 mmHg Heart Rate 78 /min Body Temperature 98.9 F Respiratory Rate 18 /min Height 67 inches 5'7" Weight 271.00 lb BMI (Body Mass Index) 42.4 kg/m2 07/29/2018 2:02pm BP Systolic 144 mmHg BP [...] Result H/L Range Note Laboratory test 06/26/2018 [facility] Hemoglobin A1c 5.7 % 4.1-5.7 finding (607)- - (Fma) Glucose Fingerstick (Fma) 84 mg/dL 70-105 CBC Auto Diff 05/27/2018 [facility] [place] Blood Count 9.4 10^3/uL N 3.5-10.8 [...] Cells % 0.1 Comp Metabolic Panel 05/27/2018 [facility] Sodium 139 mmol/L N 135-145 Potassium 4.3 [...] 98.4 >60 1 Laboratory test finding 05/27/2018 [facility] Prealbumin 26 mg/dL N 18-38 Vitamin B12 496 pg/mL N 180-914 2 Zinc Level 0.78 g/mL 0.66-1.10 3 Laboratory test 05/20/2018 [facility] [place] Tissue (BX) SEE RESULT 4, 5 finding Culture & Gram BELOW Laboratory test 05/20/2018 [facility] [place] Tissue (BX) SEE RESULT 6 finding Culture & Gram BELOW St Comprehensive 09/18/2017 Lai Annelise(fma) Sodium 140 mEq/L 134-14 Metabolic Prof 9 [...] >60 ml/min/1.73m^ >=60 Lipid Profile 09/18/2017 Ming Castelan([facility]) Cholesterol 264 mg/dL High 120-200 Triglycerides 146 mg/dL 30-200 HDL Cholesterol 51 mg/dL 30-70 LDL (Calculated) 184 CALC High 0-129 VLDL Cholesterol 29 mg/dL 0-50 HDL Risk Factor 5.2 CALC High 0.0-4.4 CBC Electronic Fma 09/18/2017 Ming Castelan([facility]) WBC 8.7 x10^3/UL 4.0- 10.0 RBC 5.59 x10^6/UL 3.93-6.00 HGB 16.0 g/dL 12.0-17.0 HCT 48 % 35-50 MCV 86.4 fL 80.0-95.0 MCH 28.6 pg 25.6-32.2 MCHC 33.1 g/dL 32.2-36.0 RDW-CV 13.4 % 11.6-14.4 PLT 248 x10^3/UL 163-400 MPV 11.3 fL 9.4-12.4 Isadora# 5.14 x10^3/UL 1.56-6.13 Lymph# 2.32 x10^3/UL 1.18-3.74 Isanti# 0.70 x10^3/UL 0.24-0.82 Eos # 0.3 x10^3/UL 0.0-0.5 Baso # 0.06 x10^3/UL 0.01-0.08 Isadora% 59.2 % 34.0-70.0 Lymph % 26.8 % 20.0-52.0 Isanti% 8.1 % 5.0-12.0 Eos% 3.9 % 0.7-7.0 Baso% 0.7 % 0.1-1.2 CBC Manual Diff-Fma 08/24/2017 [facility] WBC 9.33 4.0-10.0 (607)- - RBC 5.80 [...] rare giant plts Comprehensive Metabolic 08/24/2017 Lai Annelise(fma) Sodium 139 mEq/L 134-149 Prof Potassium 4.3 [...] developed and its performance characteristics determined by [facility] in a manner consistent with CLIA requirements. This test has not been cleared or approved by the U.S. Food and Drug Administration. Test Performed by: [facility] [address] [place] [id number] 4 LEFT LOWER LEG 5 SEE RESULT BELOW Name: CAPRI METCALF : [address]: Sylvia Croft NP Acct: [id number] Unit: [id number] AGE: 47 Location: WOUND Re05/20/18 SEX: M Status: REG REF SPEC: [id number] LOS: 05/20/18-[address] [facility] [address]: Sylvia Croft NP REQ: [id number] RECD: 05/20/18 STATUS: GERRY FOLEY DR: Savannah Long BUCKLE INSPECTOR _ SOURCE: WOUND SPDESC: ORDERED: Tissue Cult/GS [...] CONTINUED ON NEXT PAGE DEPARTMENT OF PATHOLOGY, [address] [place] [address] Edin Vanegas M.D. Director [facility] # [id number] Patient: CAPRI METCALF [id number] (Continued) Specimen: [id number] Collected: 05/20/18135 Received: 05/20/18-1425 (Continued) Procedure Result Reported Site Tissue Culture [...] These antibiotics are not available in the [facility] Formulary Contact the Microbiology Department for any additional antibiotic reporting. CONTINUED ON NEXT PAGE DEPARTMENT OF PATHOLOGY, [address] [place] [address] Edin Vanegas M.D. Director [facility] # [id number] Patient: CAPRI METCALF [id number] (Continued) Specimen: [id number] Collected: 05/20/18-970 Received: 05/20/18-816 (Continued) Procedure Result Reported Site Tissue Culture Final (continued) Contact the Microbiology Department for any additional antibiotic reporting. * ML - Main Lab . END OF REPORT DEPARTMENT OF PATHOLOGY, [address] [place] [address] Edin Vanegas M.D. Director [facility] # [id number] 6 SEE RESULT BELOW Name: CAPRI METCALF : [address]: Sylvia Croft NP Acct: [id number] Unit: [id number] AGE: 47 Location: WOUND Re05/20/18 SEX: M Status: REG REF SPEC: [id number] LOS: 05/20/[address]: Sylvia Croft NP REQ: [id number] RECD: 05/20/18 STATUS: RES [facility] DR: Savannah Logn BUCKLE INSPECTOR _ SOURCE: WOUND SPDESC: ORDERED: Tissue Cult/GS [...] . END OF REPORT DEPARTMENT OF PATHOLOGY, [address] [address] Edin Vanegas M.D. Director [facility] # [id number] Procedures Date Code Description Status 06/26/2018 38730 Finger Or Heel Stick Completed 10/31/2017 26183 Electrocardiogram Complete Completed 09/10/2017 04620 Electrocardiogram Complete Completed Encounters Type Date Location Provider Dx Diagnosis Office Visit 07/29/2018 [facility] Office Jimmie Gee I10 Essential (primary) 2:00p MD Parvin hypertension Office Visit 06/26/2018 [facility] Office Jimmie Gee R73.9 Hyperglycemia, 12:40p MD Parvin unspecified I10 Essential (primary) hypertension I87.2 Venous insufficiency (chronic) (peripheral) Office Visit 10/31/2017 2:30p [facility] Office Savannah Long, M54.5 Low back pain CENSUS TAKER M25.552 Pain in left hip R60.0 Localized edema I87.2 Venous insufficiency (chronic) (peripheral) I10 Essential (primary) hypertension R00.0 Tachycardia, unspecified Office Visit 10/17/2017 11:30a [facility] Office Savannah Long, M54.5 Low back pain CENSUS TAKER M25.552 Pain in left hip R60.0 Localized edema I87.2 Venous insufficiency (chronic) (peripheral) I10 Essential (primary) hypertension Office Visit 09/10/2017 1:20p [facility] Office Jimmie Gee Z00.00 Encntr for MD Parvin general adult medical exam w/o abnormal findings Z23 Encounter for immunization Office Visit 09/07/2017 [facility] Jimmie Soto Essential 2:00p Office MD Parvin (primary) hypertension Office Visit 08/24/2017 [facility] [place] M54.5 Low back pain 1:45p Office LIONEL Logn K40.90 Unil inguinal hernia, w/o obst or gangr, not spcf as recur I10 Essential (primary) hypertension D72.829 Elevated white blood cell count, unspecified Plan of Treatment 10/21/2018 - Jimmie Melendrez MDZ01.810 Encounter for preprocedural cardiovascular uowqqkkusfeL63.12 Unilateral primary osteoarthritis, left hipAllComments:Medication Management Patient Understands medications he's taking ? Yes No Are there Barriersto Adherence? Yes No Has the patient been asked about herbal supplements and therapies, and OTC meds? Yes No
[2018-10-29] MEDS ORDERED: ceFAZolin 2 GM PREMIX in ORs 2 GM/50 ML BAG ONE (09:05)
[2018-10-29] MEDS ORDERED: ceFAZolin 1 GM ADVAN(*) 1 GM ADDV.VIAL IVPB ONE (09:06)
[2018-10-29] MEDS ORDERED: Buffered Lidocaine 1% SYRIN* 1 ML/SYRINGE INTRADERM ONE (09:06)
[2018-10-29] MEDS ORDERED: Bacitracin OINTMENT* 0.5% 0.5 oz TUBE ONE (11:42)
[2018-10-29] MEDS ORDERED: Midazolam* 1 MG/ML 5 ML VIAL (5 MG) ONE (12:03)
[2018-10-29] MEDS ORDERED: Propofol* 10 MG/ML 20 ML BTL ONE (12:08)
[2018-10-29] MEDS ORDERED: Rocuronium* 10 MG/ML VIAL ONE ×3 (12:08→13:29)
[2018-10-29] MEDS ORDERED: fentaNYL* 50 MCG/ML 2 ML VIAL (100 MCG VIAL) ONE ×3 (12:08→15:21)
[2018-10-29] MEDS ORDERED: Dexamethasone IV* 4 MG/ML 1 ML (4 MG) ONE (12:56)
[2018-10-29] MEDS ORDERED: Magnesium Hydroxide LIQ* 30 ML UDC PO PRN (15:17)
[2018-10-29] MEDS ORDERED: oxyCODONE/Acetamin 5/325 MG* TAB PO PRN (15:17)
[2018-10-29] MEDS ORDERED: DiMENhydriNATE IV* 50 MG/ML VIAL IV PUSH PRN (15:18)
[2018-10-29] MEDS ORDERED: Ondansetron INJ* 2 MG/ML VIAL IV PRN ×2 (15:18→15:33)
[2018-10-29] MEDS ORDERED: Naloxone* 0.4 MG/ML 1 ML VIAL IV PRN (15:18)
[2018-10-29] MEDS: fentaNYL* 50 MCG/ML 2 ML VIAL (100 MCG VIAL) IV PRN ×4 (15:21→16:03)
[2018-10-29] MEDS ORDERED: HYDROmorphone INJ1* 1 MG/ML SYRINGE ONE (15:25)
[2018-10-29] MEDS: HYDROmorphone INJ1* 1 MG/ML SYRINGE IV PRN ×5 (15:27→16:36)
[2018-10-29] MEDS ORDERED: Bisacodyl SUPP* 10 MG SUPP PR PRN (15:33)
[2018-10-29] MEDS ORDERED: diPHENhydraMINE IV* 50 MG/ML 1 ml VIAL (BENADRYL) IV PRN (15:33)
[2018-10-29] MEDS ORDERED: Morphine 4 MG/ML VIAL (1 ml) 4 MG/ML VIAL IV PRN (15:33)
[2018-10-29] MEDS ORDERED: Cyclobenzaprine TAB* 10 MG PO PRN (15:33)
[2018-10-29] MEDS ORDERED: Acetaminophen TAB* 325 MG PO SCH (16:00)
[2018-10-29] MEDS ORDERED: oxyCODONE/Acetamin 5/325 MG* TAB ONE (16:12)
[2018-10-29] MEDS: oxyCODONE/Acetamin 5/325 MG* TAB PO PRN ×2 (16:14→16:15)
--- NOTE | 2018-10-29 20:03 | CONS ---
CC: Dr. Jimmie Melendrez; Dr. Andrade * CONSULTATION REPORT: DATE OF CONSULT: 10/29/18 PRIMARY CARE PROVIDER: Dr. Jimmie Melendrez. REASON FOR CONSULT: Medical management of a patient with hypertension, status post left hip replacement by Dr. Andrade. CHIEF COMPLAINT: Left hip pain. HISTORY OF PRESENT ILLNESS: Christoph Metcalf is a 47-year-old male with history of morbid obesity and bilateral lower extremity DVTs that were diagnosed as per the patient's report in January of 2018, which was approximately 3 to 4 months after the patient's left inguinal hernia repair. At that point, the patient was anticoagulated for a total of 3 months. The patient is today status post left hip replacement performed by Dr. Andrade. He has no complaints at this point apart from that he finds the oxygen via nasal cannula uncomfortable and he is asking when that can be removed. Medical management consult was requested by Dr. Andrade for postop management of the patient with history of hypertension. PAST MEDICAL HISTORY: 1. History of obesity. 2. History of bilateral lower extremity DVT as per the patient with 3 months of anticoagulation. The DVT appears to have been precipitated by left inguinal hernia repair and subsequent postop edema. 3. Left inguinal hernia repair in September of 2017. 4. Chronic bilateral lower extremity edema, the patient wears compression stockings. 5. History of bilateral hip osteoarthritis with chronic pain. 6. Hypertension. 7. Multiple left leg fractures including distal fibular fractures and metatarsals in . MEDICATIONS AT HOME: Include: 1. Tramadol 50 mg on a p.r.n. basis. 2. Losartan 25 mg daily. 3. Amlodipine 10 mg daily. 4. Aspirin 325 mg daily. The patient has not taken it for approximately a week. 5. Tylenol on a p.r.n. basis. 6. Hydrochlorothiazide 25 mg daily. ALLERGIES: No known drug allergies. SOCIAL HISTORY: The patient is currently not working. He used to work at a [employer] He denies any tobacco or alcohol use, but he uses marijuana to help him with pain. As his surrogate, he names his father, Drew Metcalf. REVIEW OF SYSTEMS: Please see history of present illness. All the remaining 12 systems were reviewed with the patient and were otherwise negative. PHYSICAL EXAM: Blood pressure of 158/95, heart rate of 110 and regular, respiratory rate 20, oxygen saturation 98% on 4 L of oxygen via nasal cannula, temperature of 97.7. General: The patient is a pleasant 47-year-old male who is obese, in no acute distress, alert, awake, and oriented x3. HEENT: Head: Atraumatic, normocephalic. Eyes: Pupils are equal, reactive to light and accommodation. Oropharynx is clear. Mucosa moist. Neck: Supple. No JVD. No bruits bilaterally. Cardiovascular: Regular rate and rhythm with tachycardia. No murmur. Respiratory: Clear to auscultation bilaterally. Abdomen: Soft, nontender. Bowel sounds are present in all 4 quadrants. Extremities: There is trace bilateral pedal edema. Pulses are 2+ bilaterally. There is no clubbing or cyanosis. Left postop hip, the incision is covered with postop dressings and were not removed for evaluation. DIAGNOSTIC STUDIES/LAB DATA: Currently, none. ASSESSMENT AND PLAN: 1. In regards to postoperative management of this patient status post left hip replacement, as per Dr. Andrade. 2. The patient has history of deep venous thrombosis in bilateral lower extremities in 2018 as per the patient. I myself was unable to see the report that actually shows the deep venous thrombosis at [facility] medical records. It is possible that the patient had the Dopplers done at facility. At this point, as Dr. Andrade recommended, the patient is going to be placed on 30 mg subcutaneously of Lovenox postoperatively. Later on, he should be fully anticoagulated as per orthopedic service recommendation. 3. In regards to the patient's management of hypertension, the patient is going to be continued on losartan, amlodipine, and his hydrochlorothiazide is going to be held postoperatively. 4. For DVT prophylaxis, as mentioned above, as per ortho service. 5. The patient's code status is full. His surrogate is his father. TIME SPENT: Approximately 65 minutes was spent on consultation of this patient , more than half that time was spent [id number] with the patient during the interview and physical exam. [id number]/[facility] #: [id number] VIDYA
[2018-10-29] MEDS: Docusate CAP* 100 MG PO SCH (20:53)
[2018-10-29] MEDS: oxyCODONE TAB* 5 MG TAB PO PRN (20:53)
[2018-10-29] MEDS: ceFAZolin 1 GM ADVAN(*) 1 GM in NS 0.9% 50 ML* 50 ML IVPB SCH (20:55)
[2018-10-29] MEDS: Magnesium Hydroxide LIQ* 30 ML UDC PO SCH (21:49)
[2018-10-29] MEDS: Acetaminophen TAB* 325 MG PO SCH (21:49)
--- NOTE | 2018-10-29 22:02 | OP ---
CC: [facility] * DATE OF OPERATION: 10/29/18 - ROOM #349 DATE OF : [birth year] SURGEON: Casey Andrade M.D. ASSISTANTS: assistant produce manager, ROCKY Richter and ROCKY Coy. ANESTHESIOLOGIST: Dr. Albert Quintero ANESTHESIA: General. PRE-OP DIAGNOSIS: Severe arthritis of the left hip. POST-OP DIAGNOSIS: Severe arthritis of the left hip. OPERATIVE PROCEDURE: Left total hip replacement. COMPONENTS UTILIZED: Vasyl Continuum cup cluster holes 54 mm outer diameter with one screw, an elevated liner, Longevity, high density polyethylene for a 36 head was placed with an elevation posteriorly. On the femoral side, a standard M/L taper size 10 with a +3.5, 36 mm cobalt chrome head. COMPLICATIONS: There were no complications. DRAINS: There were no drains. ESTIMATED BLOOD LOSS: 200 mL. CONDITION: The patient was given 1 g of tranexamic acid at the start of the case and the condition was stable at the recovery room. REPLACEMENT: Crystalloid fluid. OPERATIVE INDICATIONS: Severe degenerative arthritis of the left hip. It has been totally disabling him over the last 2 years with severe pain, markedly limited walking ability, less than a block and necessity for walking aids. Also, the patient had the toenails that were not being tended and too long and curling, and we discussed with the patient carefully that we would clip these at the time of the surgical care and he consented to that as well. DESCRIPTION OF PROCEDURE: The patient was brought to the operating room and placed on the operating room table in a supine position. Following the administration of the anesthetic, a Almeida catheter was inserted and toenails 1 through 5 were cut on the left side and toenails 1 through 4 were cut on the right side. They were dressed at the end of the case with antibiotic ointment. The patient was then placed in a right lateral position with a folded blanket under the right greater trochanter. The pelvis was secured over the ASIS and the sacrum with a hip positioner. The groin was sealed off. The down side leg was checked to see if there was no pressure on the peroneal nerve at the fibular head and blankets were placed between the legs. The left hip was given a preliminary chlorhexidine prep and then the formal ChloraPrep. After prepping , draping, and sealing off, we did our universal protocol time-out concerning Crhistoph Metcalf and the plan for left total hip replacement. We all agreed and we proceeded. The hip was approached with a curving posterolateral skin incision, 4 to 5 inches in length, going from the greater trochanter distally for 2 inches and curving proximally and posteriorly towards the posterior iliac spine. The skin and subcu divided down and careful hemostasis was checked and achieved throughout the case utilizing electrocautery. The fascia mateus was divided in line with the skin incision and the fascia over gluteus chloe as the same. The Charnley retractor was carefully inserted. The gluteus chloe was divided bluntly with careful hemostasis. The trochanteric bursa was swept posteriorly. The posterior border of the abductor musculature was identified and a blunt Hohmann retractor was inserted. The piriformis tendon was identified and the hip was approached with going along the superior margin of the piriformis tendon and then going inferiorly towards piriformis fossa. The piriformis was marked with a #2 Surgidac suture and the same with a conjoined tendon and the suture also went through the inferior capsule. These 2 stitches served as a retractor throughout the case. The careful posterior approach to the hip was done with careful hemostasis. The hip had some synovial fluid and it was clear. The hip was dislocated without difficulty. The femoral head was markedly deformed. There was osteophyte and head deformity, flattening of the head. The acetabulum had a large medial osteophyte, which was completely overgrowing the fovea. The femoral neck was cut about a half fingerbreadth proximal to the lesser trochanter, and the head and neck was carefully removed. The remaining of the labrum were carefully excised. Anterior osteophyte was removed. Posterior- inferior osteophyte was removed and then the medial osteophyte was removed. The retractors were with sharp Hohmann anteriorly and posteriorly, and blunt Hohmann superiorly and inferiorly. Once the acetabular fovea was under visualization, we then did reaming 44 through 54, and at 54 we had nice bleeding subchondral and cancellous bone. The acetabulum was cleaned several times with pulsed saline and a 54 Continuum cup was impacted into position and 45 degrees of abduction and 20 degrees of anteversion with nice tight fit. A screw was placed superiorly. The elevated liner was placed posteriorly. We then removed the anterior osteophyte and then the acetabulum was packed with a saline-soaked lap sponge. On the femoral side, we used the canal finder, trochanteric reamer, and broaching was done 5 through 10 and at 10, we did a trial reduction with the standard neck and plus serial head. There was a little push-pull, also we elected to use the +3.5 head. The femoral canal was cleaned several times with saline. The final size 10 standard M/L taper was impacted into position in 15 to 20 degrees of anteversion. The trunnion was cleaned and a +0.3.5 of 36-mm cobalt chrome head was impacted under the dry trunnion. The hip was reduced and there was negative push-pull. No tendency towards levering with IR and ER on extension. The hip allowed 100 degrees of flexion with adduction and internal rotating approaching 30 to 40 degrees prior to dislocation. Careful hemostasis was checked and achieved as we closed. We irrigated with saline several more times. I did not think drains were necessary. The piriformis and conjoined tendon were reapproximated through 2 drill holes into the posterosuperior greater trochanter. The fascia mateus closed with interrupted #1 Vicryl in figure -of-eight fashion. The deep and superficial subcu was closed with 0 and then 2- 0 Vicryl and then the skin closed with tyrone. The skin was washed and dried and covered with Betadine-soaked release followed by sterile gauze, ABD to pad and paper tape. The patient was carefully returned to the recovery room in stable and satisfactory condition having tolerated the procedure very well. [id number]/[facility] #: [id number] [facility]
[2018-10-30] MEDS: ceFAZolin 1 GM ADVAN(*) 1 GM in NS 0.9% 50 ML* 50 ML IVPB SCH ×2 (03:32→12:08)
[2018-10-30 05:26] LABS: Hematocrit 38 % (42-52); Hemoglobin 12.5 g/dL (14.0-18.0); Mean Platelet Volume 10.1 fL (7.4-10.4); Platelet Count 200 10^3/uL (150-450)
[2018-10-30] MEDS: oxyCODONE/Acetamin 5/325 MG* TAB PO PRN ×2 (05:43→15:29)
[2018-10-30 05:46] LABS: BUN/Creatinine Ratio 21.5 (8-20); Calcium 8.3 mg/dL (8.6-10.3); EGFR African American 88.9 (>60); EGFR Non-African American 73.5 (>60); Potassium 4.2 mmol/L (3.5-5.0)
[2018-10-30] MEDS: Acetaminophen TAB* 325 MG PO SCH ×2 (05:54→14:46)
[2018-10-30] MEDS: Magnesium Hydroxide LIQ* 30 ML UDC PO SCH (08:20)
[2018-10-30] MEDS: oxyCODONE TAB* 5 MG TAB PO PRN ×2 (08:21→12:09)
[2018-10-30] MEDS: Docusate CAP* 100 MG PO SCH (08:21)
[2018-10-30] MEDS ORDERED: Hydrochlorothiazide TAB* 25 MG PO SCH (09:00)
[2018-10-30] MEDS ORDERED: Losartan TAB* 25 MG PO SCH (09:00)
[2018-10-30] MEDS ORDERED: amLODIPine TAB* 5 MG PO SCH (09:00)
--- NOTE | 2018-10-30 11:16 | PN ---
Subjective Date of Service: 10/30/18 Interval History: Pt feels well. Had been walking on his post op hip already Objective Active Medications: Acetaminophen (Tylenol Tab*) 975 mg PO Q8HR [facility] Last Admin: 10/30/18 05:54 Dose: Not Given Amlodipine Besylate (Norvasc Tab*) 10 mg PO QAM [facility] Last Admin: 10/30/18 08:21 Dose: 10 mg Bisacodyl (Dulcolax Supp*) 10 mg [place] DAILY PRN PRN Reason: constipation Cyclobenzaprine HCl (Flexeril Tab*) 5 mg PO TID PRN PRN Reason: SPASMS Diphenhydramine HCl (Benadryl Iv*) 25 mg IV Q6H PRN PRN Reason: itching Docusate Sodium (Colace Cap*) 100 mg PO BID [facility] Last Admin: 10/30/18 08:21 Dose: 100 mg Enoxaparin Sodium (Lovenox(*)) 30 mg SUBCUT ONCE ONE Stop: 10/30/18 13:01 Cefazolin Sodium 1 gm/ Sodium (Chloride) 50 mls @ 200 mls/hr IVPB Q8H [facility] Stop: 10/30/18 12:14 Last Admin: 10/30/18 03:32 Dose: 200 mls/hr Lactated Ringer's (Lactated Ringers 1000 Ml Bag*) 1,000 mls @ 100 mls/hr IV PER RATE [facility] Last Admin: 10/30/18 03:31 Dose: 100 mls/hr Losartan Potassium ([facility]ar Tab*) [facility] Admin: 10/30/18 08:20 Dose: 50 mg Magnesium Hydroxide (Milk Of Magnesia Liq*) 30 ml PO BID [facility] Last Admin: 10/30/18 08:20 Dose: 30 ml Magnesium Hydroxide (Milk Of Magnesia Liq*) 30 ml PO Q6H PRN PRN Reason: constipation Morphine Sulfate (Morphine 4 Mg/Ml Vial (1 Ml)) 2 mg IV Q2H PRN PRN Reason: PAIN - UNRELIEVED Ondansetron HCl (Zofran Inj*) 4 mg IV Q6H PRN PRN Reason: nausea Oxycodone HCl (Roxycodone Tab*) 10 mg PO Q4H PRN PRN Reason: PAIN - SEVERE Last Admin: 10/30/18 08:21 Dose: 10 mg Oxycodone/Acetaminophen (Percocet 5/325 Tab*) 2 tab PO Q4H PRN PRN Reason: PAIN - MODERATE Last Admin: 10/30/18 05:43 Dose: 2 tab Oxycodone/Acetaminophen (Percocet 5/325 Tab*) 1 tab PO Q4H PRN PRN Reason: PAIN - MILD Rivaroxaban (Xarelto(*)) 10 mg PO DAILY [facility] Vital Signs - 8 hr 10/30/18 10/30/18 10/30/18 03:27 05:43 07:19 Temperature 98.9 F 98.5 F Pulse Rate 102 107 Respiratory 18 18 18 Rate Blood Pressure 123/70 138/79 (mmHg) O2 Sat by Pulse 97 96 Oximetry 10/30/18 10/30/18 07:34 08:21 Temperature Pulse Rate Respiratory 20 20 Rate Blood Pressure (mmHg) O2 Sat by Pulse Oximetry Oxygen Devices in Use Now: None Appearance: 47 yo M in nAD, AAOx3 Eyes: No Scleral Icterus, PERRLA Ears/Nose/Mouth/Throat: NL Teeth, Lips, Gums, Mucous Membranes Moist Neck: NL Appearance and Movements; NL JVP, Trachea Midline Respiratory: Symmetrical Chest Expansion and Respiratory Effort, Clear to Auscultation Cardiovascular: NL Sounds; No Murmurs; No JVD, RRR Abdominal: NL Sounds; No Tenderness; No Distention Lymphatic: No Cervical Adenopathy Extremities: No Clubbing, Cyanosis, - - mild left thigh edema Skin: No Nodules or Sclerosis, - - left post op incision covered-dressings not removed, no evidence of hematoma Neurological: Alert and Oriented x 3, NL Muscle Strength and Tone Result Diagrams: 10/30/18 05:02 10/30/18 05:02 Assess/Plan/Problems-Billing Assessment: 47 yo m with h/o obesity , HTN, post left inguinal hernia DVT in 2018 after elective L hip replacement - Patient Problems (1) History of left hip replacement Comment: as per DR. Andrade (2) HTN (hypertension) Comment: controled on Losartan , Norvasc, holding HCTZ, can be restarted at discharge (3) DVT prophylaxis Comment: pt has h/o post op DVT in 2018 On Xarelto as per ortho service Status and Disposition: Medicine consult Will sign off and see pt prn Thank you very much for consult
[2018-10-30] MEDS ORDERED: Enoxaparin(*) 30 MG/0.3 ML SYR SUBCUT ONE (13:00)
[2018-10-30] MEDS ORDERED: NS 0.9% 500 ML* 500 ML IV ONE (13:03)
--- NOTE | 2018-10-30 13:11 | PN ---
Progress Note - Progress Note Date of Service: 10/30/18 SOAP: Subjective: []Pt seen at bedside. He feels well with well controlled hip pain. Denies CP, SOB, dizziness, nausea, calf pain. Has DVT history. Objective: []General: appears well, NAD LLE: Left hip dressing CDI, thigh soft, DF/PF intact, DP2+, sensation intact to light touch distally Calves supple and nontender without erythema, edema or palpable cords Assessment: []POD 1 sp left total hip replacement Plan: []WBAT Posterior hip precautions PT/OT today lovenox 30 mg sq. tomorrow start xarelto 10 mg po qd x 30 days SCDs Fluid bolus given for tachycardia, current HR 103 Vital Signs Temp 98.4 F 10/30/18 11:38 Pulse 103 10/30/18 11:38 Resp 17 10/30/18 12:09 BP 154/89 10/30/18 11:38 Pulse Ox 97 10/30/18 11:38 Intake & Output 10/29/18 10/30/18 10/30/18 18:59 06:59 18:59 Intake Total 2250 1878 740 Output Total 1450 950 Balance 2250 428 -210 Weight 270 lb Intake: IV Fluids 2250 1078 ABX - CEFAZOLIN 110 LR 2250 968 Oral 800 740 Output: Urine 950 [place] 1450 Other: Date of Last Bowel 19 Movement # Bowel Movements 0 1 Estimated Stool Amount Small Estimated Blood Loss <250 Comment Laboratory Last Values Hgb 12.5 g/dL (14.0-18.0) L 10/30/18 05:02 Hct 38 % (42-52) L 10/30/18 05:02 Plt Count 200 10^3/uL (150-450) 10/30/18 05:02 MPV 10.1 fL (7.4-10.4) 10/30/18 05:02 Sodium 136 mmol/L (135-145) 10/30/18 05:02 Potassium 4.2 mmol/L (3.5-5.0) 10/30/18 05:02 Chloride 103 mmol/L (101-111) 10/30/18 05:02 Carbon Dioxide 27 mmol/L (22-32) 10/30/18 05:02 Anion Gap 6 mmol/L (2-11) 10/30/18 05:02 BUN 23 mg/dL (6-24) 10/30/18 05:02 Creatinine 1.07 mg/dL (0.67-1.17) 10/30/18 05:02 Est GFR ( Amer) 88.9 (>60) 10/30/18 05:02 Est GFR (Non-Af Amer) 73.5 (>60) 10/30/18 05:02 BUN/Creatinine Ratio 21.5 (8-20) H 10/30/18 05:02 Glucose 117 mg/dL (70-100) H 10/30/18 05:02 Calcium 8.3 mg/dL (8.6-10.3) L 10/30/18 05:02
[2018-10-30] MEDS ORDERED: NS 0.9% 1000 ML** 1,000 ML IV SCH (13:15)
[2018-10-30 16:16] VITALS: BP 126/82
--- NOTE | 2018-10-30 17:55 | DS ---
Orthopedic Discharge Summary - Discharge Summary Date of Admission:10/29/18 Date of Discharge: 10/30/18 Date of Surgery: 10/29/18 Attending Orthopedic Provider: Dr Andrade Pre-operative Diagnosis: left hip osteoarthritis Operative Procedure: left total hip replacement Disposition of Patient: home Condition of Patient: stable History: CAPRI DC is a 47 year old M with years of increasingly severe left hip pain. Patient has failed conservative management and has elected to undergo a left total hip replacement Hospital Course: CAPRI was admitted to [facility], [place] on 10/29/18. Patient underwent a left total hip replacement without complication followed by a brief recovery in PACU and transfer to the Short Stay Surgical Unit in stable condition. Our hospitalist service, physical therapy and occupational therapy also participated in this patients care. Post-op day 1: patient was alert and in no acute distress. Dressing was changed, incision was clean, dry and intact. Operative extremity dorsiflexion and plantarflexion intact, sensation intact to light touch distally, DP2+. Patient was deemed to be medically and orthopedically stable for discharge home. His baseline heartrate is in the low 100s over the past year, he has no chest pain or shortness of breath, radial pulse is regular. Home Medications Medication Instructions Recorded Confirmed Type Acetaminophen Tylenol 650 mg PO BEDTIME PRN 09/18/17 10/29/18 History Losartan TAB* [Cozaar TAB*] 50 mg PO QAM 09/18/17 10/29/18 History amLODIPine TAB* [Norvasc 5 mg TAB*] 10 mg PO QAM 09/18/17 10/29/18 History Hydrochlorothiazide TAB* 25 mg PO QAM 08/08/18 10/29/18 History [Hydrodiuril TAB*] Acetaminophen TAB* [Tylenol TAB*] 975 mg PO Q8HR tab 10/30/18 Rx Aspirin TAB* [Aspirin 325 MG TAB*] 1 tab PO QAM #0 10/30/18 10/29/18 Rx Docusate CAP* [Colace Cap*] 100 mg PO BID PRN #90 cap 10/30/18 Rx Rivaroxaban TAB(*) [Xarelto 10 mg 10 mg PO DAILY #30 tab 10/30/18 Rx (*)] oxyCODONE/Acetamin 5/325 MG* 1 tab PO Q4H PRN tab MDD 10 10/30/18 Rx [Percocet 5/325 TAB*] oxyCODONE/Acetamin 5/325 MG* 2 tab PO Q4H PRN #70 tab MDD 10/30/18 Rx [Percocet 5/325 TAB*] Discharge Instructions following Orthopedic Surgery: Activity: * Weight Bearing as tolerated * Continue physical therapy and occupational therapy exercises as shown * home physical therapy Hip replacements: Continue Hip Precautions- do not cross legs or bend greater than 90 degrees/squat Wound care: * OK to shower on post-op day 3, no bathing, swimming, or submerging wound. * Use gentle soap, pat dry. Cover with gauze, JOHN wrap or tape. * Visiting home nurse to do wound checks. Call Orthopedic office for: * Increased drainage * Redness * Increased pain * Fever Go to ER with shortness of breath or chest pain. Diet: * Regular diet * Increase fluids and fiber to prevent constipation. * Continue to use stool softeners, call office if no bowel motion within 48 hours. Medications See Home Medication List in your packet for medications that you should take after discharge. DVT Prophylaxis: this medication increases bleeding risk Xarelto Dosin mg daily x 30 days Pain Control: Percocet Dosin/325 mg 1-2 tabs by mouth every 4-6 hours as needed for pain. Maximum of 10 tabs per day. Hold for sedation Please note that Percocet contains Tylenol (acetaminophen). Maximum daily dose of Tylenol is 4000 mg from all sources. Antibiotics are required prior to any dental work. FOLLOW UP: Follow up with Dr. Andrade within 4 weeks, call for appointment Please call our office with any questions or concerns ([phone]) Your heartrate remains elevated as it has reportedly, over the past year. Please follow up with your PCP. Home nursing should also track your heartrate. Heartrate was 105 bmp on day of discharge
[2018-10-31] MEDS ORDERED: Rivaroxaban TAB(*) 10 MG PO SCH (12:00)
== END 2018-10-30 18:30 | disposition home health service (06) | DRG 301 ==
LOC: AA 10-29 08:17 → SSU 10-29 17:33
PROVIDERS: ADMIT Orthopaedic Surgery; ATTEND Orthopaedic Surgery
PROC: 0SRB02A Replacement of Left Hip Joint with Metal on Polyethylene Synthetic Substitute, Uncemented, Open Approach (ICD-10-PCS; principal; 2018-10-29 10:30)
DX: M16.0 Bilateral primary osteoarthritis of hip (principal); Z68.41 Body mass index [BMI] 40.0-44.9, adult; I10 Essential (primary) hypertension; E78.5 Hyperlipidemia, unspecified; E66.01 Morbid (severe) obesity due to excess calories; R60.0 Localized edema; R73.03 Prediabetes; M25.752 Osteophyte, left hip; L30.9 Dermatitis, unspecified; Z79.82 Long term (current) use of aspirin; Z82.49 Family history of ischemic heart disease and other diseases of the circulatory system; Z86.718 Personal history of other venous thrombosis and embolism
CPT/HCPCS: 36415; 72170; 80048; 85014; 85018; 85049; A9270-GY; J0690; J1100; J1170; J1650; J2250; J2704; J3010

== ENCOUNTER 2018-08-08 14:35 | Emergency (ER) | payer OTHER ==
--- OUTSIDE RECORDS SUMMARY | 2018-08-08 14:39 | XMS REPORT | Continuity of Care Document ---
:1970 External Reference #:[id number] Author Name Jimmie Melendrez MD Address [address] [facility] [facility] [place] [address] Care Team Providers Name Role Phone Jimmie Melendrez MD Care Team Information Dental Equipment Technician Unavailable Jimmie Melendrez MD Primary Care Physician Unavailable Payers Date Identification Numbers Payment Provider Subscriber Effective: 2018 Policy Number: [id number] [facility] Christoph Metcalf PayID: [id number] [address] [address] [place] [address] Effective: 2015 Policy Number: [id number] / Of CNDejuan Christoph Metcalf Expires: 2018 PayID: [id number] [address] [address] [place] [address] Advance Directives Description No Information Available Problems Description No Information Family History Description No Information Available Social History Type Date Description Comments Sex Unknown Marital Status . Diet Skips Meals Diet Healthy, Well Balanced Sleep Reports continuity disturbances Tobacco Use Start: Unknown shift related sleep disturbances Sleep Typically sleeps 6 hours a night Tobacco Use Start: Unknown Denies Tobacco Use ETOH Use Rare Recreational Drug Use Marijuana Tobacco Use Start: Unknown Nonsmoker Smoking Status Reviewed: 06/26/18 Nonsmoker Exercise Type/Frequency Exercises rarely Allergies, Adverse Reactions, Alerts Description No Known Drug Allergies Medications Medication Date Status Form Strength Qnty SIG Indications Ordering Provider Hydrochlorothiazide 06/26 Active Tablets 25mg 90tab 1 by mouth s every Am MD Parvin Losartan Potassium 10/31 Active Tablets 100mg 90tab 1 by mouth I1 s every day MD Parvin Amlodipine Besylate 00 Active Tablets 10mg 90tab 1 by mouth I10 / s every day MD Parvin Tramadol HCL Active Tablets 50mg 1/2 -1 by Unknown /0000 mouth every 6 hours as needed Aspirin 00/00 Active Tablets 325mg 1 by mouth Unknown /0000 every day Silver Sulfadiazine 10/18 Hx Cream 1% 50gm apply sparingly Ethan, - 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 Losartan Potassium 09/07 Hx Tablets 50mg 90tab 1 by mouth I10 s every day Ethan, - 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 10/31 Naproxen 08/24 Hx Tablets 500mg 60tab 1 by mouth M54.5 Savannah s twice a 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 10/16 Cyclobenzaprine HCL Hx Tablets 10mg 1 by mouth Unknown /0000 three - times a 10/16 day as needed Tramadol HCL Hx Tablets 50mg 1 by mouth Unknown /0000 every 6 - hours as 10/16 needed Immunizations CPT Code Status Date Vaccine Lot # [id number] Given 09/10/2017 Tdap Tetanus, W Pertussis [id number] Vital Signs Date Vital Result Comment 07/29/2018 2:02pm BP Systolic 144 mmHg BP Diastolic 90 mmHg Heart Rate 118 /min Body Temperature 97.9 F Height 67 inches 5'7" 06/26/2018 12:30pm BP Systolic 178 mmHg BP Diastolic 96 mmHg Heart Rate 120 /min Body Temperature 98.1 F Respiratory Rate 18 /min Height 67 inches 5'7" Weight 271.12 lb BMI (Body Mass Index) 42.5 kg/m2 10/31/2017 2:30pm BP Systolic 162 mmHg BP Diastolic 84 mmHg Heart Rate 132 /min Body Temperature 98.9 F Respiratory Rate 17 /min Height 67 inches 5'7" 10/17/2017 11:28am BP Systolic 150 mmHg BP Diastolic 82 mmHg Heart Rate 118 /min Body Temperature 97.2 F Height 67 inches 5'7" 09/10/2017 1:14pm BP Systolic 140 mmHg BP Diastolic 88 mmHg Heart Rate 118 /min Body Temperature 98.1 F Respiratory Rate 18 /min Height 67 inches 5'7" Weight 260.12 lb BMI (Body Mass Index) 40.7 kg/m2 08/24/2017 1:44pm BP Systolic 170 mmHg BP Diastolic 100 mmHg Heart Rate 120 /min Body Temperature 99.3 F Height 67 inches 5'7" Weight 251.38 lb BMI (Body Mass Index) 39.4 kg/m2 Results Test Date Facility Test Result H/L Range Note Laboratory test 06/26/2018 [facility] Hemoglobin A1c 5.7 % 4.1-5.7 finding (607)- - (Fma) Glucose Fingerstick (Fma) 84 mg/dL 70-105 CBC Auto Diff 05/27/2018 [facility] White Blood Count 9.4 10^3/uL N 3.5-10.8 Red Blood Count 5.08 10^6/uL N 4.00-5.40 Hemoglobin 14.6 g/dL N 14.0-18.0 Hematocrit 44 % N 42-52 Mean Corpuscular Volume 86 fL N 80-94 Mean Corpuscular Hemoglobin 29 pg N 27-31 Mean Corpuscular HGB Conc 34 g/dL N 31-36 Red Cell Distribution Width 14 % N 10.5-15 Platelet Count 275 10^3/uL N 150-450 Mean Platelet Volume 10.1 fL N 7.4-10.4 Abs Neutrophils 6.2 10^3/uL N 1.5-7.7 Abs Lymphocytes 1.9 10^3/uL N 1.0-4.8 Abs Monocytes 0.6 10^3/uL N 0-0.8 Abs Eosinophils 0.6 10^3/uL N 0-0.6 Abs Basophils 0.1 10^3/uL N 0-0.2 Abs Nucleated RBC 0 10^3/uL Granulocyte % 66.4 % Lymphocyte % 20.1 % Monocyte % 6.4 % Eosinophil % 5.9 % Basophil % 1.2 % Nucleated Red Blood Cells % 0.1 Comp Metabolic Panel 05/27/2018 [facility] Sodium 139 mmol/L N 135-145 Potassium 4.3 mmol/L N 3.5-5.0 Chloride 107 mmol/L N 101-111 Co2 Carbon Dioxide 23 mmol/L N 22-32 Anion Gap 9 mmol/L N 2-11 Glucose 112 mg/dL High 70-100 Blood Urea Nitrogen 20 mg/dL N 6-24 Creatinine 0.98 mg/dL N 0.67-1.17 BUN/Creatinine Ratio 20.4 High 8-20 Calcium 8.9 mg/dL N 8.6-10.3 Total Protein 7.1 g/dL N 6.4-8.9 Albumin 3.6 g/dL N 3.2-5.2 Globulin 3.5 g/dL N 2-4 Albumin/Globulin Ratio 1.0 N 1-3 Total Bilirubin 0.30 mg/dL N 0.2-1.0 Alkaline Phosphatase 110 U/L High 34-104 Alt 17 U/L N 7-52 Ast 18 U/L N 13-39 Egfr Non- 81.3 >60 Egfr 98.4 >60 1 Laboratory test finding 05/27/2018 [facility] Prealbumin 26 mg/dL N 18-38 Vitamin B12 496 pg/mL N 180-914 2 Zinc Level 0.78 g/mL 0.66-1.10 3 Laboratory test 05/20/2018 [facility] Tissue (BX) SEE RESULT 4, 5 finding Culture & Gram BELOW Laboratory test 05/20/2018 [facility] Tissue (BX) SEE RESULT 6 finding Culture & Gram BELOW St Comprehensive 09/18/2017 Lai Annelise (Fma) Sodium 140 mEq/L 134-14 Metabolic Prof 9 Potassium 5.5 mEq/L 3.6-5.5 Chloride 103 mEq/L 94-112 Carbon Dioxide 26 mEq/L 21-32 Glucose 117 mg/dL High 70-105 BUN 26 mg/dL 6-26 Creatinine 1.0 mg/dL 0.6-1.4 BUN/Creat Ratio 26.0 CALC 8.0-36.0 Calcium 9.8 mg/dL 8.6-10.2 Total Protein 7.1 g/dL 6.4-8.3 Albumin 4.3 g/dL 3.8-5.5 Globulin 2.8 g/dL 2.0-4.8 A/G Ratio 1.5 CALC 0.6-2.3 Alk. Phosphatase 108 U/L High 22-95 Alt (SGPT) 20 U/L 7-35 Ast (Sgot) 24 U/L 5-34 Total Bilirubin 0.5 mg/dL 0.2-1.3 GFR Non- >60 ml/min/1.73m^ >=60 GFR >60 ml/min/1.73m^ >=60 Lipid Profile 09/18/2017 Ming Annelise ([facility]) Cholesterol 264 mg/dL High 120-200 Triglycerides 146 mg/dL 30-200 HDL Cholesterol 51 mg/dL 30-70 LDL (Calculated) 184 CALC High 0-129 VLDL Cholesterol 29 mg/dL 0-50 HDL Risk Factor 5.2 CALC High 0.0-4.4 CBC Electronic Fma 09/18/2017 Lai Annelise (a) WBC 8.7 x10^3/UL 4.0- 10.0 RBC 5.59 x10^6/UL 3.93-6.00 HGB 16.0 g/dL 12.0-17.0 HCT 48 % 35-50 MCV 86.4 fL 80.0-95.0 MCH 28.6 pg 25.6-32.2 MCHC 33.1 g/dL 32.2-36.0 RDW-CV 13.4 % 11.6-14.4 PLT 248 x10^3/UL 163-400 MPV 11.3 fL 9.4-12.4 Isadora# 5.14 x10^3/UL 1.56-6.13 Lymph# 2.32 x10^3/UL 1.18-3.74 Coffee# 0.70 x10^3/UL 0.24-0.82 Eos # 0.3 x10^3/UL 0.0-0.5 Baso # 0.06 x10^3/UL 0.01-0.08 Isadora% 59.2 % 34.0-70.0 Lymph % 26.8 % 20.0-52.0 Coffee% 8.1 % 5.0-12.0 Eos% 3.9 % 0.7-7.0 Baso% 0.7 % 0.1-1.2 CBC Manual Diff-a 08/24/2017 [facility] WBC 9.33 4.0-10.0 (607)- - RBC 5.80 3.93-6.0 Hemoglobin (Fma/CMC/CTX) 16.6 g/dL 12.0-17.0 Hematocrit (Fma/CMC/CTX) 49.0 % 35.0-50.0 Mean Corpuscular Vol 84.5 fL 80-95 Mean Corpuscular Hemoglobin 28.6 pg 25.6-32.2 Mean Corpuscular Hemo Concen 33.9 g/dL 32.2-36.0 Platelets 295 10^3/ul 163-400 RDW 13.2 11.6-13.7 Mean Platelet Volume 11.1 fL 9.4-12.4 Neutrophil 70 Band 3 Lymphocytes 15 Monocyte 6 Promyelocytes 1 Atypical Lymph 5 Z#Comment rare giant plts Comprehensive Metabolic 08/24/2017 L[facility] Annelise (Fma) Sodium 139 mEq/L 134-149 Prof Potassium 4.3 mEq/L 3.6-5.5 Chloride 102 mEq/L 94-112 Carbon Dioxide 28 mEq/L 21-32 Glucose 124 mg/dL High 70-105 BUN 18 mg/dL 6-26 Creatinine 0.9 mg/dL 0.6-1.4 BUN/Creat Ratio 20.0 CALC 8.0-36.0 Calcium 9.1 mg/dL 8.6-10.2 Total Protein 7.0 g/dL 6.4-8.3 Albumin 3.9 g/dL 3.8-5.5 Globulin 3.1 g/dL 2.0-4.8 A/G Ratio 1.3 CALC 0.6-2.3 Alk. Phosphatase 109 U/L High 22-95 Alt (SGPT) 31 U/L 7-35 Ast (Sgot) 23 U/L 5-34 Total Bilirubin 0.5 mg/dL 0.2-1.3 GFR Non- >60 ml/min/1.73m^ >=60 GFR >60 ml/min/1.73m^ >=60 1 Because ethnic data is not always readily available, this report includes an eGFR for both -Americans and non- Americans. The National Kidney Disease Education Program (NKDEP) does not endorse the use of the MDRD equation for patients that are not between the ages of 18 and 70, are , have extremes of body size, muscle mass, or nutritional status, or are non- or non-. According to the National Kidney Foundation, irrespective of diagnosis, the stage of the disease is based on the level of kidney function: Stage Description GFR(mL/min/1.73 m(2)) 1 Kidney damage with normal or decreased GFR 90 2 Kidney damage with mild decrease in GFR 60-89 3 Moderate decrease in GFR 30-59 4 Severe decrease in GFR 15-29 5 Kidney failure <15 (or dialysis) 2 Normal Range 180 to 914 Indeterminate Range 145 to 180 Deficient Range <145 3 ADDITIONAL INFORMATION This test was developed and its performance characteristics determined by [facility] in a manner consistent with CLIA requirements. This test has not been cleared or approved by the U.S. Food and Drug Administration. Test Performed by: [facility] - [facility] [address] [place] [id number] 4 LEFT LOWER LEG 5 SEE RESULT BELOW Name: CHRISTOPH METCALF Cleo : [address]: Sylvia Croft NP Acct: [id number] Unit: [id number] AGE: 47 Location: WOUND Re05/20/18 SEX: M Status: REG REF SPEC: [id number] LOS: 05/20/18-[address] [facility] [address]: Sylvia Croft NP REQ: [id number] RECD: 05/20/183223 STATUS: GERRY URENA DR: Savannah Long RADIOGRAPHER CARDIAC CATHETERIZATION _ SOURCE: WOUND SPDESC: ORDERED: Tissue Cult/GS COMMENTS: LEFT LOWER LEG Procedure Result Reported Site Tissue Gram Stain Final 05/20/18- 1500 ML 1+ Epithelial Cells No Neutrophils Observed 1+ Gram Positive Cocci Preparation By Cytospin Smear Tissue Culture Final 05/24/18- 0958 ML Organism 1 STAPHYLOCOCCUS AUREUS Quantity 3+ Organism 2 STREP DYSGALAC (STREP EQUISIM) Quantity 2+ Organism 3 STENOTROPHOMAS MALTOPHILIA Quantity 1+ 1. STAPHYLOCOCCUS AUREUS M.I.C. RX --------- ------ Penicillin >=0.5 R Clindamycin R Erythromycin >=8 R Gentamicin <=0.5 S Linezolid 2 S Oxacillin 0.5 S * Quinupristin/Dalfopristin 0.5 S Rifampin <=0.5 S Tetracycline <=1 S Doxycycline - Deduced S * Minocycline - Deduced S CONTINUED ON NEXT PAGE DEPARTMENT OF PATHOLOGY, [address] [place] [address] Edin Vanegas M.D. Director RON # [id number] Patient: CHRISTOPH METCALF [id number] (Continued) Specimen: [id number] Collected: 05/20/18135 Received: 05/20/18 (Continued) Procedure Result Reported Site Tissue Culture Final (continued) 05/24/18957 1. STAPHYLOCOCCUS AUREUS (continued) M.I.C. RX --------- ------ Trimethoprim/Sulfamethoxazole <=10 S Vancomycin 1 S Imipenem-Deduced S * Ampicillin/Sulbactam-Deduced S Cefazolin-Deduced S 2. STREP DYSGALAC (STREP EQUISIM) M.I.C. RX --------- ------ Chloramphenicol 4 S Ampicillin <=0.06 S Penicillin <=0.03 S Cefepime <=0.25 S * Cefotaxime <=0.25 S Ceftriaxone <=0.25 S Levofloxacin 0.5 S Azithromycin <=0.25 S Clindamycin <=0.06 S Erythromycin <=0.06 S Tetracycline <=0.50 S Vancomycin 0.5 S 3. STENOTROPHOMAS MALTOPHILIA M.I.C. RX --------- ------ Levofloxacin 1 S Trimethoprim/Sulfamethoxazole <=20 S * These antibiotics are not available in the [facility] Formulary Contact the Microbiology Department for any additional antibiotic reporting. CONTINUED ON NEXT PAGE DEPARTMENT OF PATHOLOGY, [address] [place] [address] Edin Vanegas M.D. Director LEONARDAZ # [id number] Patient: CHRISTOPH METCALF [id number] (Continued) Specimen: [id number] Collected: 05/20/18-203 Received: 05/20/18-912 (Continued) Procedure Result Reported Site Tissue Culture Final (continued) Contact the Microbiology Department for any additional antibiotic reporting. * - [facility] . END OF REPORT DEPARTMENT OF PATHOLOGY, [address] [place] [address] Edin Vanegas M.D. Director [facility] # [id number] 6 SEE RESULT BELOW Name: CHRISTOPH METCALF : [address]: Sylvia Croft NP Acct: [id number] Unit: [id number] AGE: 47 Location: WOUND Re05/20/18 SEX: M Status: REG REF SPEC: [id number] LOS: 05/20/[address] [facility] [address]: Sylvia Croft RADIOGRAPHER CARDIAC CATHETERIZATION REQ: [id number] RECD: 05/20/18 STATUS: RES [facility] DR: Savannah Long RADIOGRAPHER CARDIAC CATHETERIZATION _ SOURCE: WOUND SPDESC: ORDERED: Tissue Cult/GS COMMENTS: LEFT LOWER LEG Procedure Result Reported Site Tissue Gram Stain Final 05/20/18- 1500 ML 1+ Epithelial Cells No Neutrophils Observed 1+ Gram Positive Cocci Preparation By Cytospin Smear Tissue Culture Preliminary 05/21/18- 1356 ML Organism 1 STAPHYLOCOCCUS AUREUS Quantity 3+ Organism 2 STREP DYSGALAC (STREP EQUISIM) Quantity 2+ * ML - Main Lab . END OF REPORT DEPARTMENT OF PATHOLOGY, [address] [place] [id number] Edin Vanegas M.D. Director [facility] # [id number] Procedures Date Code Description Status 06/26/2018 51101 Finger Or Heel Stick Completed 10/31/2017 73160 Electrocardiogram Complete Completed 09/10/2017 78644 Electrocardiogram Complete Completed Encounters Type Date Location Provider Dx Diagnosis Office Visit 06/26/2018 Main Office Jimmie Gee R73.9 Hyperglycemia, 12:40p MD Parvin unspecified I10 Essential (primary) hypertension I87.2 Venous insufficiency (chronic) (peripheral) Office Visit 10/31/2017 2:30p [facility] Office Savannah Ethan, M54.5 Low back pain 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 M25.552 Pain in left hip R60.0 Localized edema I87.2 Venous insufficiency (chronic) (peripheral) I10 Essential (primary) hypertension R00.0 Tachycardia, unspecified Office Visit 10/17/2017 11:30a [facility] Office Savannahronald Long, M54.5 Low back pain 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 M25.552 Pain in left hip R60.0 Localized edema I87.2 Venous insufficiency (chronic) (peripheral) I10 Essential (primary) hypertension Office Visit 09/10/2017 1:20p [facility] Office Jimmie Gee Z00.00 Encntr for MD Parvin general adult medical exam w/o abnormal findings Z23 Encounter for immunization Office Visit 09/07/2017 [facility] Jimmie Gee I10 Essential 2:00p Office MD Parvin (primary) hypertension Office Visit 08/24/2017 [facility] Savannah M54.5 Low back pain 1:45p Office LIONEL Long K40.90 Unil inguinal hernia, w/o obst or gangr, not spcf as recur I10 Essential (primary) hypertension D72.829 Elevated white blood cell count, unspecified Plan of Treatment 07/29/2018 - Jimmie Melendrez MDI10 Essential (primary) hypertensionAllComments:~B_~U_Medication Management~b_~u_ Patient Understands medications he's taking? Yes No Are there Barriers to Adherence? Yes No Has the patient been asked about herbal supplements and therapies, and OTC meds? Yes No
--- OUTSIDE RECORDS SUMMARY | 2018-08-08 14:39 | XMS REPORT | Continuity of Care Document ---
:1970 External Reference #:[id number] Author Name Tammy Lamar Care Team Providers Name Role Phone Markel Sotelo MD Care Team Information Auriculotherapist Unavailable Savannah Long FNP Primary Care Physician Unavailable Payers Date Identification Numbers Payment Provider Subscriber Policy Number: [id number] [place] Christoph Metcalf PayID: [id number] [address] [address] [place] [address] Expires: 2018 Policy Number: [id number] [employer] Christoph Metcalf Group Number: [id number] [address] [address] PayID: [id number] [place] [address] Advance Directives Description No Information Available Problems Date Description Provider Status Onset: 07/22/2018 Localized, primary osteoarthritis of the Casey Andrade M.D. 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 mouth every 6 hours if needed Forearm 11/15/19 Active M16.12 Casey Andrade, Crutches 18 M.D. M16.11 Losartan Potassium Active Tablets 25mg one tab laura Long FNP Amlodipine Besylate Active Tablets 10mg one tab Chirag, daily Sergio [place] MD Cyclobenzaprine HCL Active Tablets 10mg as needed Sergio Beard MD Xarelto Active Tablets 20mg 1 tab Unknown daily Oxycodone-Acetamino 09/14/2017 - Hx Tablets 5-325mg 15t 1 tablet K40 Leoncio S. phen Unknown abs every 6 .90 MD Michelle hours as needed for pain No Active 07/10/2016 - Hx Unknown Medications 08/21/2016 Ibuprofen - Hx prn Unknown Unknown Aspir-81 - Hx Tablets DR 81mg 1 by mouth Unknown Unknown every day Naproxen - Hx Tablets 500mg every 12 Ethan, Unknown hours as Savannah, needed FIELD SCOUT Tramadol HCL - Hx Tablets 50mg 1-2 Unknown Unknown tablets every 6 hours as needed, use less as able Sulfamethoxazole/Tr - Hx Tablets 800-160 1 tab Unknown imethoprim DS 02/06/2018 mg twice daily Immunizations Description No Information Available Vital Signs Date Vital Result Comment 07/22/2018 2:18pm Height 67 inches 5'7" Weight 245.00 lb BP Systolic 132 mmHg BP Diastolic 74 mmHg Respiratory Rate 18 /min Pain Level 7 BMI (Body Mass Index) 38.4 kg/m2 06/03/2018 2:36pm Height 67 inches 5'7" Weight 245.00 lb Heart Rate 88 /min BP Systolic 130 mmHg BP Diastolic 80 mmHg Respiratory Rate 18 /min Pain Level 8 BMI (Body Mass Index) 38.4 kg/m2 02/07/2018 2:36pm Height 57 inches 4'9" Weight 262.38 lb Heart Rate 94 /min BP Systolic Sitting 148 mmHg BP Diastolic Sitting 84 mmHg Respiratory Rate 14 /min Body Temperature 99.1 F BMI (Body Mass Index) 56.8 kg/m2 01/30/2018 2:21pm Height 67 inches 5'7" Weight 245.00 lb Heart Rate 86 /min BP Systolic 150 mmHg BP Diastolic 88 mmHg Respiratory Rate 18 /min Pain Level 8 BMI (Body Mass Index) 38.4 kg/m2 01/09/2018 1:57pm Heart Rate 120 /min BP Systolic Sitting 140 mmHg BP Diastolic Sitting 100 mmHg Respiratory Rate 20 /min Body Temperature 99.0 F 12/26/2017 2:44pm Height 67 inches 5'7" Weight 245.00 lb BP Systolic 140 mmHg BP Diastolic 84 mmHg Respiratory Rate 20 /min Pain Level 7 BMI (Body Mass Index) 38.4 kg/m2 11/14/2017 2:52pm Height 67 inches 5'7" Weight 245.00 lb BP Systolic Sitting 178 mmHg BP Diastolic Sitting 98 mmHg Respiratory Rate 16 /min Body Temperature 98.4 F Pain Level 3 BMI (Body Mass Index) 38.4 kg/m2 11/02/2017 1:03pm Heart Rate 84 /min BP Systolic 150 mmHg BP Diastolic 92 mmHg Respiratory Rate 18 /min Body Temperature 98.8 F 10/05/2017 2:40pm Heart Rate 90 /min BP Systolic Sitting 190 mmHg has not taken BP meds yet today BP Diastolic Sitting 120 mmHg has not taken BP meds yet today Respiratory Rate 18 /min Body Temperature 98.6 F 10/02/2017 9:28am Heart Rate 102 /min Respiratory Rate 16 /min Body Temperature 98.9 F 09/14/2017 3:05pm Heart Rate 102 /min BP Systolic Sitting 152 mmHg BP Diastolic Sitting 92 mmHg Respiratory Rate 18 /min Body Temperature 99.8 F 08/31/2017 2:46pm Height 67 inches 5'7" Weight 245.00 lb Heart Rate 84 /min BP Systolic Sitting 160 mmHg BP Diastolic Sitting 94 mmHg Respiratory Rate 20 /min Body Temperature 99.9 F BMI (Body Mass Index) 38.4 kg/m2 09/04/2016 1:43pm Height 67 inches 5'7" Weight 230.00 lb Heart Rate 124 /min BP Systolic 200 mmHg BP Diastolic 127 mmHg Respiratory Rate 15 /min Body Temperature 98.6 F Pain Level 0 BMI (Body Mass Index) 36.0 kg/m2 08/21/2016 1:49pm Height 67 inches 5'7" Weight 230.00 lb Heart Rate 104 /min BP Systolic 170 mmHg BP Diastolic 128 mmHg Respiratory Rate 24 /min Pain Level 0 BMI (Body Mass Index) 36.0 kg/m2 07/31/2016 2:26pm Height 67 inches 5'7" Weight 230.00 lb Heart Rate 120 /min BP Systolic 160 mmHg BP Diastolic 125 mmHg Respiratory Rate 24 /min Body Temperature 98.5 F Pain Level 3 BMI (Body Mass Index) 36.0 kg/m2 07/10/2016 2:05pm Height 67 inches 5'7" Weight 230.00 lb Heart Rate 125 /min Respiratory Rate 18 /min Body Temperature 99.7 F Pain Level 6 BMI (Body Mass Index) 36.0 kg/m2 Results Test Date Facility Test Result H/L Range Note CBC Auto Diff 05/27/2018 [facility] White Blood 9.4 10^3/uL N 3.5-10.[address] [place] [address] [phone] Red Blood Count 5.08 10^6/uL N 4.00-5.40 [...] Cells % 0.1 Comp Metabolic Panel 05/27/2018 [facility] Sodium 139 mmol/L N 135-[address] [place] [address] [phone] Potassium 4.3 mmol/L N 3.5-5.0 Chloride 107 [...] >60 Egfr 98.4 >60 1 Laboratory test 05/27/2018 [facility] Prealbumin 26 mg/dL N 18 -[address] [place] [address] [phone] Vitamin B12 496 pg/mL N 180-884 2 Zinc Level 0.78 g/mL 0.66-1.10 3 Laboratory test 05/20/2018 [facility] Tissue (BX) SEE RESULT 4, [address] Culture & [place] [address] [phone] 1 Because ethnic data is not always [...] developed and its performance characteristics determined by [facility] in a manner consistent with CLIA requirements. This test has not been cleared or approved by the U.S. Food and Drug Administration. Test Performed by: [facility] [address] [place] [address] 4 LEFT LOWER LEG 5 SEE RESULT BELOW Name: CHRISTOPH METCALF : [address]: Sylvia Croft NP Acct: [id number] Unit: [id number] AGE: 47 Location: WOUND Re05/20/18 SEX: M Status: REG REF SPEC: [id number] LOS: 05/20/18-8414 [facility] DR: Sylvia Croft NP REQ: [id number] RECD: 05/20/188989 STATUS: GERRY FOLEY DR: Savannah Long NP _ SOURCE: WOUND SPDESC: ORDERED: Tissue Cult/GS [...] CONTINUED ON NEXT PAGE DEPARTMENT OF PATHOLOGY, [address] [place] [address] Edin Vanegas M.D. Director [facility] # [id number] Patient: CHRISTOPH METCALF [id number] (Continued) Specimen: [id number] Collected: 05/20/18-1359 Received: 05/20/18-142 (Continued) Procedure Result Reported Site Tissue Culture [...] These antibiotics are not available in the [facility] Formulary Contact the Microbiology Department for any additional antibiotic reporting. CONTINUED ON NEXT PAGE DEPARTMENT OF PATHOLOGY, [address] [place] [address] Edin Vanegas M.D. Director [facility] # [id number] Patient: CHRISTOPH METCALF [id number] (Continued) Specimen: [id number] Collected: 05/20/18-7319 Received: 05/20/18-4256 (Continued) Procedure Result Reported Site Tissue Culture Final (continued) Contact the Microbiology Department for any additional antibiotic reporting. * - Main Lab . END OF REPORT DEPARTMENT OF PATHOLOGY, [address] [place] [address] Edin Vanegas M.D. Director [facility] # [id number] Procedures Date Code Description Status 05/20/2018 03643 Debridement Skin,& sq Tissue Completed 09/24/2017 01019 Repair Hernia Inguinal > 5Yrs, Incarcerated Or Completed Strangulated 09/24/2017 18983 Repair Hernia Inguinal > 5Yrs, Incarcerated Or Completed Strangulated 07/10/2016 42195 Closed [place] Prox/Shaft Fibula W/O Manip Completed Encounters Type Date Location Provider Dx Diagnosis Office Visit 07/08/2018 Wound Care Sylvia Croft, L97.221 Non-prs chronic 1:15p Center AT [facility] [place] STUART, LIONEL-BC ulcer of left calf limited to brkdwn skin Office Visit 07/01/2018 Wound Care Sylvia Croft L73.9 Follicular 1:15p Center AT [facility] STUART, LIONEL-AJZMÍN disorder, unspecified 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 Office Visit 05/24/2018 2:30p Wound Care Sylvia S81.801A Unspecified open [facility] AT [facility] SADE Croft RN, wound, right lower FIELD SCOUT-BC leg, initial encounter Office Visit 05/20/2018 1:15p Wound Care Sylvia I87.032 Postthrom syndrome Center AT [facility] SADE Croft RN, w ulcer and FIELD SCOUT-BC inflammation of l low extrem 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 unsp prt of l low Diseases leg limited to brkdwn skin I89.0 Lymphedema, not elsewhere classified Office Visit 01/30/2018 Orthopedic Casey Andrade, M16.12 Unilateral primary 2:15p [facility] M[facility]D. osteoarthritis, left C.M.A. hip Office Visit 01/09/2018 Surgical Leoncio Kline K40.30 Unil inguinal hernia, 2:00p [facility], w/o ganyesy, Chris WOLFE not spcf as recur Office Visit 12/26/2017 Orthopedic Casey Andrade, M16.12 Unilateral primary 2:45p [facility] osteoarthritis, left C.M.A. hip L03.116 Cellulitis of left lower limb Office Visit 11/14/2017 Orthopedic Casey Andrade, M16.11 Unilateral primary 3:00p [facility] osteoarthritis, right C.M.A. hip M16.12 Unilateral primary osteoarthritis, left hip Office Visit 09/14/2017 3:00p Surgical Leoncio Kline K40.90 Unil inguinal [facility] MD hernia, w/o obst or gangr, not spcf as recur Office Visit 08/31/2017 2:45p Surgical Leoncio Kline K40.90 Unil [facility]inal [facility] MD hernia, w/o obst or gangr, not spcf as recur Plan of Treatment Future Appointment(s):08/19/2018 2:15 pm - Casey Andrade M.D. at [facility]07/22/2018 - Casey Andrade M.D.L97.221 Non-pressure chronic ulcer of left calf limited to breakdownFollow up:Follow up: 4-5 weeks Continue the care of the skin or your legsM16.12 Unilateral primary osteoarthritis, left hip
[2018-08-08 15:18] VITALS: BP 143/83
--- NOTE | 2018-08-08 15:33 | ED ---
Throat Pain/Nasal Congestion - HPI Summary HPI Summary: 47 yo WM p/w sudden epistaxis in the right nare while in the shower bending over and "wouldn't stop bleeding" which made him nervous. Pt has h/o of HTN on amlodipine, losartan and HCTZ, ASA 325mg. Did not take his AM meds today - History of Current Complaint Chief Complaint: UCGeneralIllness Time Seen by Provider: 08/08/18 15:03 Hx Obtained From: Patient Onset/Duration: Sudden Onset Severity: Moderate Associated Signs And Symptoms: Positive: Negative - Allergies/Home Medications Allergies/Adverse Reactions: Allergies Allergy/AdvReac Type Severity Reaction Status Date / Time No Known Allergies Allergy Verified 08/08/18 14:54 Home Medications: Home Medications Aspirin TAB* [Aspirin 325 MG TAB*] 1 tab PO DAILY 08/08/18 [History Confirmed ] Hydrochlorothiazide TAB* [Hydrodiuril TAB*] 25 mg PO DAILY 08/08/18 [History Confirmed 08/08/18] PMH/Surg Hx/FS Hx/Imm Hx Previously Healthy: Yes Endocrine/Hematology History: Denies: Hx Diabetes Cardiovascular History: Reports: Hx Hypertension - on meds Denies: Hx Pacemaker/ICD Respiratory History: Reports: Hx Sleep Apnea - not tested Denies: Hx Chronic Bronchitis, Hx Chronic Obstructive Pulmonary Disease (COPD ), Other Respiratory Problems/Disorders History: Denies: Hx Renal Disease Musculoskeletal History: Denies: Other Musculoskeletal History Sensory History: Denies: Hx Contacts or Glasses, Hx Hearing Aid Opthamlomology History: Denies: Hx Contacts or Glasses Psychiatric History: Denies: Hx Panic Disorder - Surgical History Surgery Procedure, Year, and Place: HERNIA WITH SURGICAL MESH 09/24/17 Hx Anesthesia Reactions: No Infectious Disease History: No Infectious Disease History: Denies: Traveled Outside the [place] in Last 30 Days - Family History Known Family History: Positive: Hypertension - Social History Alcohol Use: Rare Alcohol Amount: 1 per month Substance Use Type: Reports: Marijuana Substance Use Comment - Amount & Last Used: weekly Smoking Status (MU): Never Smoked Tobacco Review of Systems Constitutional: Negative Eyes: Negative Positive: Epistaxis Cardiovascular: Negative Respiratory: Negative Gastrointestinal: Negative Genitourinary: Negative Musculoskeletal: Negative Skin: Negative Neurological: Negative Positive: Anxious All Other Systems Reviewed And Are Negative: Yes Physical Exam - Summary Physical Exam Summary: Vital Signs Reviewed: Yes Appearance: Positive: No Pain Distress Skin: Positive: Warm Head/Face: Positive: Normal Head/Face Inspection Eyes: Positive: Normal ENT: Positive: Normal ENT inspection, pinpoint 2mm clot in right anterior nare, no obvious bleeding on exam Neck: Positive: Supple Respiratory/Lung Sounds: Positive: Clear to Auscultation. Negative: Rales, Rhonchi, Wheezes Cardiovascular: Positive: Normal, RRR, S1, S2 Abdomen Description: Positive: Nontender Musculoskeletal: Positive: Normal Neurological: Positive: Normal, CN Intact II-III Psychiatric: Positive: Normal, Affect/Mood Appropriate Vital Signs On Initial Exam: Initial Vitals Temp Pulse Resp BP Pulse Ox 37.6 C 125 20 156/95 97 08/08/18 14:45 08/08/18 14:45 08/08/18 14:45 08/08/18 14:45 08/08/18 14:45 Diagnostics - Vital Signs Vital Signs Temp Pulse Resp BP Pulse Ox 08/08/18 15:17 37.2 C 112 16 143/83 97 08/08/18 15:00 37.4 C 114 18 152/92 97 08/08/18 14:45 37.6 C 125 20 156/95 97 - Laboratory Lab Statement: Any lab studies that have been ordered have been reviewed, and results considered in the medical decision making process. EENT Course/Dx - Course Course Of Treatment: EPistaxis stopped on its own upon d/c, EKG WNL, HR at first in 120's but improved as his anxiety improved - Diagnoses Provider Diagnoses: Anterior epistaxis Discharge - Sign-Out/Discharge Documenting (check all that apply): Patient Departure All imaging exams completed and their final reports reviewed: Yes - Discharge Plan Condition: Stable Disposition: HOME Patient Education Materials: Nosebleed (ED) Referrals: Dario Mcclain MD [Primary Care Provider] - - Billing Disposition and Condition Condition: STABLE Disposition: Home
== END 2018-08-08 15:35 | disposition home or self-care (01) ==
LOC: UCEAST 14:35
DX: R04.0 Epistaxis (principal); I10 Essential (primary) hypertension; Z79.899 Other long term (current) drug therapy; Z79.82 Long term (current) use of aspirin
CPT/HCPCS: 99211; G0463

== ENCOUNTER 2019-03-11 10:15 | Inpatient (IN) | payer OTHER ==
[2019-11-11] MEDS ORDERED: Lactated Ringers 1000 ml BAG 1,000 ML IV SCH (06:00)
[2019-11-11] MEDS ORDERED: Famotidine IV 10 MG/ML 2 ml VIAL (20 mg) IV ONE (06:00)
[2019-11-11] MEDS ORDERED: Dexamethasone IV 4 MG/ML VIAL 1 ml VIAL IV SLOW PU ONE (06:00)
[2019-11-11] MEDS ORDERED: Midazolam 2 mg/2 ml VIAL 1 mg/ml 2 ml VIAL (2 mg) ONE (08:52)
[2019-11-11] MEDS ORDERED: fentaNYL 100 mcg/2 ml 50 MCG/ML VIAL ONE ×4 (08:52→15:37)
[2019-11-11] MEDS ORDERED: Lidocaine 2% PF 5 ML VIAL ONE (08:54)
[2019-11-11] MEDS ORDERED: Metoclopramide 5 MG/ML VIAL (10 mg) ONE (08:55)
[2019-11-11] MEDS ORDERED: Ondansetron 4 mg VIAL 2 MG/ML 2 ml VIAL ONE (08:55)
[2019-11-11] MEDS ORDERED: Propofol 10 MG/ML 20 ML BTL ONE (08:55)
[2019-11-11] MEDS ORDERED: Famotidine IV 10 MG/ML 2 ml VIAL (20 mg) ONE (09:36)
[2019-11-11] MEDS ORDERED: ceFAZolin 2 GM PREMIX in ORs 2 GM/50 ML BAG ONE (09:36)
[2019-11-11] MEDS ORDERED: ceFAZolin 1 GM ADVAN(*) 1 GM ADDV.VIAL IVPB ONE ×2 (09:36→09:38)
[2019-11-11] MEDS ORDERED: Dexamethasone IV 4 MG/ML VIAL 1 ml VIAL ONE (09:36)
[2019-11-11] MEDS ORDERED: Lidocaine 2% JELLY 6 ML TOPICAL ONE (10:56)
[2019-11-11] MEDS ORDERED: Propofol 1,000 MG/100 ML BTL ONE ×2 (11:01→12:52)
[2019-11-11] MEDS ORDERED: Ondansetron 4 mg VIAL 2 MG/ML 2 ml VIAL IV PRN ×2 (13:10→15:09)
[2019-11-11] MEDS ORDERED: Naloxone 0.4 mg VIAL 0.4 mg/ml 1 ml VIAL IV PRN (13:10)
[2019-11-11] MEDS ORDERED: DiMENhydriNATE IV 50 mg/ml 1 ml VIAL IV PUSH PRN (13:10)
[2019-11-11] MEDS ORDERED: Acetaminophen IV 1 GM/100ML 1,000 MG/100 ML VIAL IVPB ONE (13:10)
[2019-11-11] MEDS ORDERED: Propofol 10 mg/ml 100 ML BTL 100 ML ONE (13:28)
[2019-11-11] MEDS ORDERED: Bupivacaine 0.25% EPI 200,000 30 ML SDV ONE (14:29)
[2019-11-11] MEDS ORDERED: Acetaminophen IV 1 GM/100ML 100 ML ONE (14:37)
[2019-11-11] MEDS ORDERED: diPHENhydraMINE 25 mg TAB PO PRN (15:09)
[2019-11-11] MEDS ORDERED: Ondansetron ODT 4 mg TAB 4 MG TAB PO PRN (15:09)
[2019-11-11] MEDS ORDERED: Magnesium Hydroxide LIQ 30 ML UDC PO PRN (15:09)
[2019-11-11] MEDS ORDERED: Morphine 2 MG/ML SYRINGE IV PRN (15:09)
[2019-11-11] MEDS ORDERED: Lactulose 30 ml UDC PO PRN (15:09)
[2019-11-11] MEDS ORDERED: diPHENhydraMINE IV 50 MG/ML 1 ml VIAL (BENADRYL) IV PRN (15:09)
[2019-11-11] MEDS: fentaNYL 100 mcg/2 ml 50 MCG/ML VIAL IV PRN ×5 (15:13→15:40)
[2019-11-11] MEDS ORDERED: HYDROmorphone 1 MG/1 ML SYRINGE ONE (15:37)
[2019-11-11] MEDS: HYDROmorphone 1 MG/1 ML SYRINGE IV PRN ×2 (15:41→15:47)
[2019-11-11] MEDS ORDERED: fentaNYL 100 mcg/2 ml 50 MCG/ML VIAL IV ONE (16:15)
[2019-11-11] MEDS ORDERED: NS 0.9% 1000 ml BAG 1,000 ML IV SCH (16:30)
[2019-11-11] MEDS: Polyethylene Glycol 3350 17 GM PACKET PO SCH (17:44)
[2019-11-11] MEDS: Lactated Ringers 1000 ml BAG 1,000 ML IV SCH ×2 (17:53→23:41)
[2019-11-11] MEDS: ceFAZolin 1 GM ADVAN(*) 1 GM in NS 0.9% 50 ML 50 ML IVPB SCH (19:26)
[2019-11-11] MEDS: Magnesium Hydroxide LIQ 30 ML UDC PO SCH (21:39)
[2019-11-11] MEDS ORDERED: NS 0.9% 500 ml BAG 500 ML IV ONE (22:43)
[2019-11-11 23:00] LABS: ABS Basophils 0.1 10^3/ul (0-0.2); ABS Lymphocytes 0.9 10^3/ul (1.0-4.8); ABS Monocytes 1.2 10^3/ul (0-0.8); Hematocrit 38 % (42-52); Hemoglobin 12.9 g/dL (14.0-18.0); Lymphocyte % 5.6 %; Mean Corpuscular HGB Conc 34 g/dL (31-36); Mean Corpuscular Hemoglobin 30 pg (27-31); Mean Corpuscular Volume 87 fL (80-94); Platelet Count 188 10^3/uL (150-450); Red Blood Count 4.37 10^6 /uL (4.18-5.48); Red Cell Distribution Width 14 % (10-15); White Blood Count 16.9 10^3/uL (3.5-10.8)
[2019-11-11 23:17] LABS: BUN/Creatinine Ratio 21.7 (8-20); Calcium 8.3 mg/dL (8.6-10.3); EGFR African American 71.3 (>60); Magnesium 1.8 mg/dL (1.9-2.7); Potassium 4.3 mmol/L (3.5-5.0)
[2019-11-11 23:25] LABS: Urine Appearance Clear; Urine Bilirubin Negative (Negative); Urine Blood Negative (Negative); Urine Color Yellow; Urine Glucose 3+(>=500 mg/dL) (Negative); Urine Ketones Negative (Negative); Urine Nitrite Negative (Negative); Urine Protein 2+(100 mg/dL) (Negative); Urine Specific Gravity 1.014 (1.010-1.030); Urine Urobilinogen Negative (Negative)
[2019-11-11 23:39] LABS: Urine Bacteria Absent (Absent); Urine Red Blood Cell Absent (Absent); Urine White Blood Cell Absent (Absent)
[2019-11-12] MEDS ORDERED: Magnesium Sulfate 2 gm BAG 2 GM/50 ML BAG IVPB ONE
[2019-11-12] MEDS ORDERED: NS 0.9% 500 ml BAG 500 ML IV ONE (00:01)
[2019-11-12] MEDS: ceFAZolin 1 GM ADVAN(*) 1 GM in NS 0.9% 50 ML 50 ML IVPB SCH ×2 (04:36→11:41)
[2019-11-12] MEDS: Polyethylene Glycol 3350 17 GM PACKET PO SCH (08:20)
[2019-11-12] MEDS: Magnesium Hydroxide LIQ 30 ML UDC PO SCH ×2 (08:20→22:21)
[2019-11-12] MEDS: Vitamin THERAPEUTIC TAB PO SCH (08:20)
[2019-11-12 09:32] LABS: Hematocrit 34 % (42-52); Hemoglobin 11.4 g/dL (14.0-18.0); Mean Platelet Volume 10.5 fL (7.4-10.4); Platelet Count 164 10^3/uL (150-450)
[2019-11-12 09:52] LABS: BUN/Creatinine Ratio 22.9 (8-20); Calcium 7.8 mg/dL (8.6-10.3); EGFR African American 86.6 (>60); EGFR Non-African American 71.6 (>60); Potassium 4.2 mmol/L (3.5-5.0)
[2019-11-12] MEDS ORDERED: Enoxaparin 40 MG/0.4 ML SYR(*) SUBCUT SCH (12:00)
[2019-11-13 06:39] LABS: Hematocrit 33 % (42-52); Hemoglobin 11.5 g/dL (14.0-18.0); Mean Platelet Volume 10.9 fL (7.4-10.4); Platelet Count 164 10^3/uL (150-450)
[2019-11-13 08:06] VITALS: BP 152/99
[2019-11-13] MEDS: Vitamin THERAPEUTIC TAB PO SCH (09:09)
[2019-11-13] MEDS: Polyethylene Glycol 3350 17 GM PACKET PO SCH (09:13)
[2019-11-13] MEDS: Magnesium Hydroxide LIQ 30 ML UDC PO SCH (09:13)
== END 2019-11-13 11:45 | disposition home health service (06) | DRG 301 ==
LOC: AA 11-11 09:18 → SSU 11-11 16:09
PROVIDERS: ADMIT Orthopaedic Surgery; ATTEND Orthopaedic Surgery

== ENCOUNTER 2020-01-13 13:26 | Inpatient (IN) ==
[~2020-01-13 13:26] MED LIST changes: -Buffered Lidocaine 0.9% SYRIN* 5 ML/SYR SYRINGE INTRADERM ONE; +Buffered Lidocaine 1% SYRIN 1 ml INTRADERM ONE; -Dexamethasone IV* 4 MG/ML 1 ML (4 MG) IV SLOW PU ONE; +Famotidine IV 10 MG/ML 2 ml VIAL (20 mg) IV ONE; -Famotidine IV* 10 MG/ML 2 ML (20 mg) IV ONE; +Lactated Ringers 1000 ml BAG 1,000 ML IV SCH
[2020-01-13] MEDS ORDERED: Famotidine IV 10 MG/ML 2 ml VIAL (20 mg) ONE (13:44)
[2020-01-13] MEDS ORDERED: ceFAZolin 2 GM PREMIX 2 GM/50 ML BAG ONE (13:45)
[2020-01-13] MEDS ORDERED: Succinylcholine 200 mg VIAL 20 mg/ml 10 ml VIAL (200 mg) ONE (14:26)
[2020-01-13] MEDS ORDERED: Lidocaine 2% PF 5 ML VIAL ONE (14:26)
[2020-01-13] MEDS ORDERED: fentaNYL 250 mcg/5 ml 50 MCG/ML 5 ml VIAL (250 MCG) ONE (14:26)
[2020-01-13] MEDS ORDERED: Propofol 10 MG/ML 20 ML BTL ONE (14:26)
[2020-01-13] MEDS ORDERED: Ondansetron 4 mg VIAL 2 MG/ML 2 ml VIAL ONE (14:26)
[2020-01-13] MEDS ORDERED: Dexamethasone IV 4 MG/ML VIAL 1 ml VIAL ONE (14:26)
[2020-01-13] MEDS ORDERED: Midazolam 2 mg/2 ml VIAL 1 mg/ml 2 ml VIAL (2 mg) ONE (14:27)
[2020-01-13] MEDS ORDERED: Rocuronium 50 mg VIAL 10 mg/ml 5 ml VIAL (50 mg) ONE ×2 (14:27→18:10)
[2020-01-13] MEDS ORDERED: Bacitracin INJECTION 50,000 UNITS ONE (15:24)
[2020-01-13] MEDS ORDERED: Vancomycin 1,000 MG VIAL ONE (15:24)
[2020-01-13] MEDS ORDERED: Vancomycin 1,500 MG in NS 0.9% 250 ml 250 ML IVPB ONE (15:46)
[2020-01-13] MEDS ORDERED: fentaNYL 100 mcg/2 ml 50 MCG/ML VIAL ONE ×2 (17:30→19:35)
[2020-01-13] MEDS ORDERED: Dexmedetomidine 200 mcg/2 ml 2 ml VIAL (200 mcg) ONE (18:02)
[2020-01-13] MEDS ORDERED: diPHENhydraMINE IV 50 MG/ML 1 ml VIAL (BENADRYL) IV PRN (18:43)
[2020-01-13] MEDS ORDERED: diPHENhydraMINE 25 mg TAB PO PRN (18:43)
[2020-01-13] MEDS ORDERED: Magnesium Hydroxide LIQ 30 ML UDC PO PRN (18:43)
[2020-01-13] MEDS ORDERED: Morphine 2 MG/ML SYRINGE IV PRN (18:43)
[2020-01-13] MEDS ORDERED: Ondansetron ODT 4 mg TAB 4 MG TAB PO PRN (18:43)
[2020-01-13] MEDS ORDERED: Ondansetron 4 mg VIAL 2 MG/ML 2 ml VIAL IV PRN ×2 (18:43→19:23)
[2020-01-13] MEDS ORDERED: Lactulose 30 ml UDC PO PRN (18:43)
[2020-01-13] MEDS ORDERED: Acetaminophen IV 1 GM/100ML 100 ML ONE (18:50)
[2020-01-13] MEDS ORDERED: HYDROmorphone 1 MG/1 ML SYRINGE ONE (18:59)
[2020-01-13] MEDS ORDERED: Vancomycin per Pharmacy 1 EA NOTE FOLLOW UP SCH (19:00)
[2020-01-13] MEDS ORDERED: Sugammadex 500 MG/5 ML 5 ml VIAL IV PUSH ONE (19:01)
[2020-01-13] MEDS ORDERED: Levalbuterol 0.63MG/3ML NEB UNIT OF USE INH PRN (19:23)
[2020-01-13] MEDS ORDERED: DiMENhydriNATE IV 50 mg/ml 1 ml VIAL IV PUSH PRN (19:23)
[2020-01-13] MEDS ORDERED: Naloxone 0.4 mg VIAL 0.4 mg/ml 1 ml VIAL IV PRN (19:23)
[2020-01-13] MEDS: fentaNYL 100 mcg/2 ml 50 MCG/ML VIAL IV PRN ×2 (19:36→20:02)
[2020-01-13] MEDS ORDERED: Polyethylene Glycol 3350 17 GM PACKET PO PRN (21:24)
[2020-01-13] MEDS: Lactated Ringers 1000 ml BAG 1,000 ML IV SCH (21:53)
[2020-01-13] MEDS: Cefepime 2 GM in Dextrose 2 GM/50 ML BAG IV SCH (21:53)
[2020-01-13] MEDS: Senna TAB 8.6 mg TAB PO SCH (22:03)
[2020-01-13] MEDS: Magnesium Hydroxide LIQ 30 ML UDC PO SCH (22:03)
[2020-01-14] MEDS: Vancomycin(*) 1,250 MG IV Q8H IVPB SCH ×3 (00:15→16:28)
[2020-01-14 06:00] LABS: Hematocrit 31 % (42-52); Hemoglobin 10.3 g/dL (14.0-18.0); Mean Platelet Volume 9.3 fL (7.4-10.4); Platelet Count 248 10^3/uL (150-450)
[2020-01-14 06:21] LABS: BUN/Creatinine Ratio 21.6 (8-20); Calcium 8.7 mg/dL (8.6-10.3); EGFR African American 80.3 (>60); EGFR Non-African American 66.4 (>60); Potassium 4.5 mmol/L (3.5-5.0)
[2020-01-14] MEDS: Magnesium Hydroxide LIQ 30 ML UDC PO SCH ×2 (08:24→21:06)
[2020-01-14] MEDS: Vitamin THERAPEUTIC TAB PO SCH (08:27)
[2020-01-14 08:52] LABS: Mean Corpuscular HGB Conc 34 g/dL (31-36); Mean Corpuscular Hemoglobin 28 pg (27-31); Mean Corpuscular Volume 83 fL (80-94); Red Blood Count 3.73 10^6 /uL (4.18-5.48); Red Cell Distribution Width 15 % (10-15); White Blood Count 14.3 10^3/uL (3.5-10.8)
[2020-01-14 08:57] LABS: C Reactive Protein 17.02 mg/L (<8.01)
[2020-01-14] MEDS: Cefepime 2 GM in Dextrose 2 GM/50 ML BAG IV SCH ×2 (10:22→21:06)
[2020-01-14] MEDS ORDERED: Enoxaparin 30 MG/0.3 ML SYR SUBCUT ONE (12:00)
[2020-01-14] MEDS: Senna TAB 8.6 mg TAB PO SCH (21:06)
[2020-01-15] MEDS: Vancomycin(*) 1,250 MG IV Q8H IVPB SCH ×3 (00:08→15:52)
[2020-01-15 04:46] LABS: Hematocrit 30 % (42-52); Hemoglobin 10.2 g/dL (14.0-18.0); Mean Platelet Volume 9.4 fL (7.4-10.4); Platelet Count 247 10^3/uL (150-450)
[2020-01-15] MEDS ORDERED: Vancomycin Trough Check NOTE FOLLOW UP ONE (07:30)
[2020-01-15] MEDS: Magnesium Hydroxide LIQ 30 ML UDC PO SCH ×2 (08:48→22:05)
[2020-01-15] MEDS: Vitamin THERAPEUTIC TAB PO SCH (08:49)
[2020-01-15] MEDS: Cefepime 2 GM in Dextrose 2 GM/50 ML BAG IV SCH (11:08)
[2020-01-15] MEDS ORDERED: Enoxaparin 40 MG/0.4 ML SYR SUBCUT SCH (12:00)
[2020-01-15] MEDS ORDERED: NS 0.9% 500 ml BAG 500 ML IV ONE (13:04)
[2020-01-15] MEDS: Senna TAB 8.6 mg TAB PO SCH (22:06)
[2020-01-16] MEDS: ceFAZolin 2 GM PREMIX 2 GM/50 ML BAG IVPB SCH ×3 (00:13→15:28)
[2020-01-16 05:22] LABS: Hematocrit 33 % (42-52); Hemoglobin 10.7 g/dL (14.0-18.0); Mean Platelet Volume 8.9 fL (7.4-10.4); Platelet Count 286 10^3/uL (150-450)
[2020-01-16] MEDS: Vitamin THERAPEUTIC TAB PO SCH (08:20)
[2020-01-16] MEDS: Magnesium Hydroxide LIQ 30 ML UDC PO SCH ×2 (08:22→20:57)
[2020-01-16] MEDS: Senna TAB 8.6 mg TAB PO SCH (20:57)
[2020-01-17] MEDS: ceFAZolin 2 GM PREMIX 2 GM/50 ML BAG IVPB SCH ×3 (00:24→16:46)
[2020-01-17 04:53] LABS: Hematocrit 33 % (42-52); Mean Platelet Volume 9.5 fL (7.4-10.4); Platelet Count 281 10^3/uL (150-450)
[2020-01-17] MEDS: Magnesium Hydroxide LIQ 30 ML UDC PO SCH ×2 (08:37→22:59)
[2020-01-17] MEDS: Vitamin THERAPEUTIC TAB PO SCH (08:37)
[2020-01-17] MEDS: Senna TAB 8.6 mg TAB PO SCH (23:00)
[2020-01-18] MEDS: ceFAZolin 2 GM PREMIX 2 GM/50 ML BAG IVPB SCH ×3 (00:59→16:28)
[2020-01-18 05:28] LABS: Hematocrit 33 % (42-52); Hemoglobin 11.2 g/dL (14.0-18.0); Mean Platelet Volume 9.5 fL (7.4-10.4); Platelet Count 314 10^3/uL (150-450)
[2020-01-18] MEDS: Vitamin THERAPEUTIC TAB PO SCH (08:44)
[2020-01-18] MEDS ORDERED: NS 0.9% 500 ml BAG 500 ML IV ONE (13:46)
[2020-01-18 14:38] LABS: BUN/Creatinine Ratio 21.1 (8-20); C Reactive Protein 18.15 mg/L (<8.01); EGFR African American 81.9 (>60); EGFR Non-African American 67.7 (>60); Potassium 3.7 mmol/L (3.5-5.0)
[2020-01-18] MEDS ORDERED: Iohexol 350 (CONTRAST) 500 ML MDV IV ONE (14:52)
[2020-01-18] MEDS: Senna TAB 8.6 mg TAB PO SCH (20:56)
[2020-01-19] MEDS: ceFAZolin 2 GM PREMIX 2 GM/50 ML BAG IVPB SCH ×3 (00:26→16:37)
[2020-01-19] MEDS ORDERED: Vancomycin Trough Check NOTE FOLLOW UP ONE (07:30)
[2020-01-19] MEDS: Vitamin THERAPEUTIC TAB PO SCH (08:30)
[2020-01-19 09:17] LABS: INR 1.16 (0.82-1.09)
[2020-01-19] MEDS ORDERED: Perflutren Lipid Microsphere 3 ML VIAL ONE (10:07)
[2020-01-19 11:34] LABS: Hematocrit 32 % (42-52); Hemoglobin 10.9 g/dL (14.0-18.0); Mean Corpuscular HGB Conc 34 g/dL (31-36); Mean Corpuscular Hemoglobin 28 pg (27-31); Mean Corpuscular Volume 83 fL (80-94); Platelet Count 301 10^3/uL (150-450); Red Blood Count 3.89 10^6 /uL (4.18-5.48); Red Cell Distribution Width 16 % (10-15); White Blood Count 12.8 10^3/uL (3.5-10.8)
[2020-01-19] MEDS: Warfarin DAILY REMINDER **NOTE FOLLOW UP SCH (17:46)
[2020-01-19] MEDS: Lactated Ringers 1000 ml BAG 1,000 ML IV SCH (19:26)
[2020-01-19] MEDS: NS 0.9% 1000 ml BAG 1,000 ML IV SCH (21:21)
[2020-01-19] MEDS: Senna TAB 8.6 mg TAB PO SCH (21:25)
[2020-01-20] MEDS: ceFAZolin 2 GM PREMIX 2 GM/50 ML BAG IVPB SCH ×3 (00:30→16:26)
[2020-01-20 06:22] LABS: ABS Basophils 0.1 10^3/ul (0-0.2); ABS Eosinophils 0.6 10^3/ul (0-0.6); ABS Lymphocytes 2.8 10^3/ul (1.0-4.8); ABS Monocytes 0.9 10^3/ul (0-0.8); ABS Neutrophils 7.1 10^3/ul (1.5-7.7); Eosinophil % 4.8 %; Hematocrit 31 % (42-52); Hemoglobin 10.4 g/dL (14.0-18.0); Lymphocyte % 24.6 %; Mean Corpuscular HGB Conc 33 g/dL (31-36); Mean Corpuscular Hemoglobin 28 pg (27-31); Mean Corpuscular Volume 83 fL (80-94); Mean Platelet Volume 9.7 fL (7.4-10.4); Platelet Count 295 10^3/uL (150-450); Red Blood Count 3.77 10^6 /uL (4.18-5.48); Red Cell Distribution Width 16 % (10-15); White Blood Count 11.4 10^3/uL (3.5-10.8)
[2020-01-20 06:40] LABS: BUN/Creatinine Ratio 18.6 (8-20); EGFR African American 82.8 (>60); EGFR Non-African American 68.4 (>60); Potassium 3.7 mmol/L (3.5-5.0)
[2020-01-20 08:11] LABS: INR 1.36 (0.82-1.09)
[2020-01-20] MEDS: Vitamin THERAPEUTIC TAB PO SCH (08:25)
[2020-01-20] MEDS: NS 0.9% 1000 ml BAG 1,000 ML IV SCH (08:28)
[2020-01-20] MEDS ORDERED: Warfarin per PHARMACY **NOTE FOLLOW UP SCH (16:00)
[2020-01-20] MEDS: Warfarin DAILY REMINDER **NOTE FOLLOW UP SCH (18:17)
[2020-01-20] MEDS ORDERED: Metoprolol Tartrate 5 mg VIAL 5 ml VIAL (1 mg/ml) IV ONE (19:31)
[2020-01-20] MEDS: Senna TAB 8.6 mg TAB PO SCH (21:49)
[2020-01-21] MEDS: ceFAZolin 2 GM PREMIX 2 GM/50 ML BAG IVPB SCH ×4 (00:11→23:52)
[2020-01-21] MEDS: NS 0.9% 1000 ml BAG 1,000 ML IV SCH ×3 (00:11→23:56)
[2020-01-21 06:52] LABS: INR 1.31 (0.82-1.09)
[2020-01-21] MEDS: Vitamin THERAPEUTIC TAB PO SCH (08:57)
[2020-01-21] MEDS: Warfarin DAILY REMINDER **NOTE FOLLOW UP SCH (16:56)
[2020-01-21] MEDS: Senna TAB 8.6 mg TAB PO SCH (20:39)
[2020-01-22] MEDS ORDERED: diPHENhydraMINE IV 50 MG/ML 1 ml VIAL (BENADRYL) IV PRN (02:26)
[2020-01-22] MEDS: ceFAZolin 2 GM PREMIX 2 GM/50 ML BAG IVPB SCH ×2 (07:45→16:24)
[2020-01-22 07:53] LABS: INR 1.73 (0.82-1.09)
[2020-01-22] MEDS: Vitamin THERAPEUTIC TAB PO SCH (08:22)
[2020-01-22] MEDS: Warfarin DAILY REMINDER **NOTE FOLLOW UP SCH (17:01)
[2020-01-22 19:33] VITALS: BP 150/74
[2020-01-22] MEDS: Senna TAB 8.6 mg TAB PO SCH (21:00)
== END 2020-01-22 22:00 | disposition home or self-care (01) | DRG 467 ==
LOC: AA 13:26 → SSU 20:45
PROVIDERS: ADMIT Orthopaedic Surgery; ATTEND Orthopaedic Surgery